=== PATIENT | female | born 1990 | race Caucasian/White ===

== ENCOUNTER 2017-08-15 12:46 | Emergency (ER) | payer OTHER ==
[~2017-08-15] VITALS: Ht 162.6 cm; Wt 86.8 kg
[2017-08-15 12:52] VITALS: TEMP 36.6; Ht 162.6 cm; Wt 86.8 kg
[2017-08-15] MEDS ORDERED: MULT-506 PO (12:52)
[2017-08-15] MEDS ORDERED: PRED10TA PO (12:52)
[2017-08-15] MEDS ORDERED: DIPH1TAB PO (12:52)
[2017-08-15] MEDS ORDERED: ASCA500 PO (12:52)
[2017-08-15] MEDS ORDERED: CLR10 PO (12:52)
[2017-08-15 13:03] VITALS: O2SAT 100
[2017-08-15] MEDS ORDERED: ONDANSETRON INJ 2 MG/ML 2 ML VIAL IV STA (13:31)
[2017-08-15] MEDS ORDERED: SODIUM CHLORIDE 0.9% 1000ML 2,000 ML IV STA (13:31)
[2017-08-15 13:56] LABS: BASO % 0.1 %; BASO ABS # 0.01 K/uL (0-0.2); COMPLETE YES; EOS % 0.7 %; HEMATOCRIT 34.9 % (37-47); IG% 0.2 %; LYMPH % 26.1 %; LYMPH ABS # 2.33 K/uL (1.2-3.4); MEAN CELL VOLUME 79.9 fL (80-100); MEAN CORPUSCULAR HEMOGLOBIN 25.6 pg (25-34); MEAN CORPUSCULAR HGB CONC 32.1 g/dl (32-36); MEAN PLATELET VOLUME 9.1 fL (7.4-10.4); MONO % 8.3 %; NEUT % 64.6 %; PLATELET COUNT 474 K/uL (130-400); RED BLOOD COUNT 4.37 M/uL (4.2-5.4); WHITE BLOOD COUNT 8.92 K/uL (4.8-10.8)
[2017-08-15 14:15] LABS: BLOOD UREA NITROGEN 7 mg/dl (7-18); CALCIUM 8.8 mg/dl (8.5-10.1); CARBON DIOXIDE 32 mmol/L (21-32); CHLORIDE 105 mmol/L (98-107); CREATININE 0.67 mg/dl (0.60-1.20); GLUCOSE 82 mg/dl (70-99); POTASSIUM 2.9 mmol/L (3.5-5.1); SODIUM 139 mmol/L (136-145)
--- NOTE | 2017-08-15 14:23 | DIAGNOSTIC IMAGING REPORT ---
CHEST ONE VIEW PORTABLE CLINICAL HISTORY: 27 years-old Female presenting with cp . TECHNIQUE: Portable upright AP view of the chest was obtained. COMPARISON: None. FINDINGS: Cardiomediastinal silhouette normal. Lungs and pleural spaces clear. Osseous structures normal. Upper abdomen normal. IMPRESSION: 1. No acute cardiopulmonary disease. Electronically signed by: Martínez Rossi M.D. 08/15/2017 2:22 PM Dictated Date/Time: 08/15/2017 2:21 PM
[2017-08-15] MEDS ORDERED: POTASSIUM CHLORIDE 10 MEQ / 100ML WTR IV SCH (14:40)
[2017-08-15] MEDS ORDERED: POTASSIUM CHLR 10 MEQ / WTR 40 MEQ in PREMIXED WATER 100 ML IV STA (14:40)
--- NOTE | 2017-08-15 14:55 | DIAGNOSTIC IMAGING REPORT ---
HEAD WITHOUT CONTRAST (CT) CLINICAL HISTORY: 27 years-old Female presenting with HUNG, allergic reaction of unknown source. TECHNIQUE: Multidetector CT imaging of the head was performed without the use of intravenous contrast. IV contrast: None. A dose lowering technique was used consistent with the principles of ALARA (as low as reasonably achievable). COMPARISON: None. CT DOSE (mGy.cm): The estimated cumulative dose is 537.48. FINDINGS: National Park Tour Guide topogram: Unremarkable. Ventricles and sulci normal in size. Brain parenchyma normal in appearance with preserved be-white differentiation. No mass effect or midline shift. No hemorrhage or acute territorial infarct. No extra-axial fluid collection. Paranasal sinuses and mastoid air cells clear. Calvarium intact. IMPRESSION: 1. No acute intracranial pathology. Electronically signed by: Martínez Rossi M.D. 08/15/2017 2:53 PM Dictated Date/Time: 08/15/2017 2:52 PM
[2017-08-15] MEDS ORDERED: POTASSIUM CHLORIDE 10 MEQ TABCR PO STA (15:13)
[2017-08-15 15:29] VITALS: BP 123/84; PULSE 68; O2SAT 99
--- NOTE | 2017-08-15 19:25 | EMERGENCY ROOM VISIT NOTE ---
History Report prepared by Scribe: Shania Gonzalez Under the Supervision of: Dr. Alonzo Ordaz D.O. 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 Her symptoms began to return yesterday, so she went back to [facility] and was told to take Benadryl to help her sleep. She took Benadryl around 2200 and reports when she woke up this morning, she felt "wrong". She currently complains of a headache and a feeling of pressure in her chest. She denies any recent change in vision, fevers, cough , rhinorrhea, sore throat, shortness of breath, nausea, vomiting, diarrhea, pain with urination, melena or increased weakness in her arms or legs. She states her past medical history includes asthma and she has no known medication allergies. Patient denies diabetes, hypertension, hyperlipidemia, CAD, history of sudden at a young age, and smoking. No fevers of 100.4. No stiff neck. 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 A total of 10 systems reviewed and were otherwise negative. Past Medical & Surgical Medical Problems: (1) Asthma Social History Smoking Status: Never Smoker Alcohol Use: occasionally Drug Use: none Marital Status: single Housing Status: lives with roommate Occupation Status: [employer] student Current/Historical Medications Scheduled Ascorbic Acid (Vitamin C), 500 MG PO DAILY Diphenhydramine Hcl (Benadryl Allergy), 25 MG PO DAILY Loratadine (Claritin), 10 MG PO DAILY Multivitamin (Multivitamin), 1 TAB PO DAILY Prednisone (Prednisone), 0 PO UD Allergies Coded Allergies: No Known Allergies (Unverified , 08/15/17) Physical Exam Vital Signs Date Time Temp Pulse Resp B/P (MAP) Pulse Ox O2 Delivery O2 Flow Rate FiO2 08/15/17 15:29 68 16 123/84 99 Room Air 08/15/17 15:10 58 16 130/86 100 Room Air 08/15/17 13:24 60 08/15/17 13:03 100 Room Air 08/15/17 13:03 63 18 98 Room Air 08/15/17 12:52 36.6 62 18 124/87 100 Room Air Physical Exam GENERAL: Patient is alert, sitting up in bed, well appearing, well nourished, no distress, non-toxic EYE EXAM: normal conjunctiva, PERRL and EOM's intact OROPHARYNX: no exudate, no erythema, lips, buccal mucosa, and tongue normal and mucous membranes are moist NECK: supple, no nuchal rigidity, no adenopathy, non-tender LUNGS: Clear to auscultation. Normal chest wall mechanics HEART: no murmurs, S1 normal and S2 normal CHEST: Acute reproducible anterior chest wall pain ABDOMEN: abdomen soft, non-tender, normo-active bowel sounds, no masses, no rebound or guarding. BACK: Back is symmetrical on inspection and there is no deformity, no midline tenderness, no CVA tenderness. SKIN: no rashes and no bruising UPPER EXTREMITIES: upper extremities are grossly normal. LOWER EXTREMITIES: No pitting edema. NEURO EXAM: Normal sensorium, cranial nerves II-XII intact, normal speech, no weakness of arms, no weakness of legs. Medical Decision & Procedures ER Provider Diagnostic Interpretation: Radiology results as stated below per my review and the radiologist's interpretation: CHEST ONE VIEW PORTABLE CLINICAL HISTORY: 27 years-old Female presenting with cp . TECHNIQUE: Portable upright AP view of the chest was obtained. COMPARISON: None. FINDINGS: Cardiomediastinal silhouette normal. Lungs and pleural spaces clear. Osseous structures normal. Upper abdomen normal. IMPRESSION: 1. No acute cardiopulmonary disease. Electronically signed by: Martínez Rossi M.D. 08/15/2017 2:22 PM HEAD WITHOUT CONTRAST (CT) CLINICAL HISTORY: 27 years-old Female presenting with HUNG, allergic reaction of unknown source. TECHNIQUE: Multidetector CT imaging of the head was performed without the use of intravenous contrast. IV contrast: None. A dose lowering technique was used consistent with the principles of ALARA (as low as reasonably achievable). COMPARISON: None. CT DOSE (mGy.cm): The estimated cumulative dose is 537.48. FINDINGS: Payroll And Benefits Coordinator topogram: Unremarkable. Ventricles and sulci normal in size. Brain parenchyma normal in appearance with preserved be-white differentiation. No mass effect or midline shift. No hemorrhage or acute territorial infarct. No extra-axial fluid collection. Paranasal sinuses and mastoid air cells clear. Calvarium intact. IMPRESSION: 1. No acute intracranial pathology. Electronically signed by: Martínez Rossi M.D. 08/15/2017 2:53 PM Laboratory Results 08/15/17 13:45 Red Blood Count 4.37, Mean Corpuscular Volume 79.9, Mean Corpuscular Hemoglobin 25.6, Mean Corpuscular Hemoglobin Concent 32.1, Mean Platelet Volume 9.1, Neutrophils (%) (Auto) 64.6, Lymphocytes (%) (Auto) 26.1, Monocytes (%) (Auto) 8.3, Eosinophils (%) (Auto) 0.7, Basophils (%) (Auto) 0.1, Neutrophils # (Auto) 5.76, Lymphocytes # (Auto) 2.33, Monocytes # (Auto) 0.74, Eosinophils # (Auto) 0.06, Basophils # (Auto) 0.01 08/15/17 13:45 Test 08/15/17 13:45 White Blood Count 8.92 K/uL (4.8-10.8) Red Blood Count 4.37 M/uL (4.2-5.4) Hemoglobin 11.2 g/dL (12.0-16.0) Hematocrit 34.9 % (37-47) Mean Corpuscular Volume 79.9 fL (80-100) Mean Corpuscular Hemoglobin 25.6 pg (25-34) Mean Corpuscular Hemoglobin Concent 32.1 g/dl (32-36) Platelet Count 474 K/uL (130-400) Mean Platelet Volume 9.1 fL (7.4-10.4) Neutrophils (%) (Auto) 64.6 % Lymphocytes (%) (Auto) 26.1 % Monocytes (%) (Auto) 8.3 % Eosinophils (%) (Auto) 0.7 % Basophils (%) (Auto) 0.1 % Neutrophils # (Auto) 5.76 K/uL (1.4-6.5) Lymphocytes # (Auto) 2.33 K/uL (1.2-3.4) Monocytes # (Auto) 0.74 K/uL (0.11-0.59) Eosinophils # (Auto) 0.06 K/uL (0-0.5) Basophils # (Auto) 0.01 K/uL (0-0.2) RDW Standard Deviation 49.2 fL (36.4-46.3) RDW Coefficient of Variation 16.7 % (11.5-14.5) Immature Granulocyte % (Auto) 0.2 % Immature Granulocyte # (Auto) 0.02 K/uL (0.00-0.02) Anion Gap 2.0 mmol/L (3-11) Est Creatinine Clear Calc Drug Dose 135.7 ml/min Estimated GFR () 140.6 Estimated GFR (Non- 121.3 BUN/Creatinine Ratio 10.0 (10-20) Calcium Level 8.8 mg/dl (8.5-10.1) Troponin I < 0.015 ng/ml (0-0.045) Laboratory results per my review. Medications Administered Medications (Trade) Dose Ordered Sig/Bhakti Route Start Time Stop Time Status Last Admin Dose Admin Sodium Chloride 2,000 ml @ 999 mls/hr Q2H1M STAT IV 08/15/17 13:31 08/15/17 15:31 DC 08/15/17 13:31 999 MLS/HR Ondansetron HCl (Zofran Inj) 4 mg NOW STAT IV 08/15/17 13:31 08/15/17 13:32 DC 08/15/17 14:26 4 MG Potassium Chloride (Kcl 10 Meq / Wtr) 10 meq Q1H IV 08/15/17 14:40 08/15/17 15:14 DC 08/15/17 15:11 10 MEQ Potassium Chloride (Klor-Con M10) 80 meq NOW STAT PO 08/15/17 15:13 08/15/17 15:15 DC 08/15/17 15:27 80 MEQ ED Course ED COURSE: Vital signs were reviewed and showed normal vital signs. The patients medical record was reviewed The above diagnostic studies were performed and reviewed. ED treatments and interventions as stated above. 1324: The patient was evaluated in room B3. A complete history and physical examination was performed. 1331: Zofran 4 mg IV, NSS 2000 ml @ 999 mls/hr IV. 1440: Potassium Chloride 10 meq IV. 1448: I reevaluated the patient. Her paresthesias are gone and her headache feels significantly better. 1513: Potassium Chloride 80 meq PO. 1515: Upon reevaluation, the patient is feeling much better and resting comfortably. I discussed my findings with the patient and she understands and agrees with the treatment plan. Based on the patients age, coexisting illnesses, exam and lab findings the decision to treat as an outpatient was made. The patient remained stable while under my care. The patient appeared well at the time of discharge. Medical Decision Etiologies such as allergic reaction, anaphylaxis, urticaria, Santana-Moris syndrome, toxic epidermal necrolysis, erythema multiforme, cellulitis, as well as others were entertained. Patient is a 27-year-old female who presents to ER for not feeling well. She notes that she has had a pressure in her head along with tingling/paresthesias throughout her entire body. He also admits to chest pain which has been present since 8:52 AM this morning. On exam she is reproducible chest pain. She is completely neurologically intact. Recently started steroids were allergic reaction. CT head was negative. No leukocytosis. Labs show a mild hypokalemia. Troponin was negative. EKG was unremarkable. Headache came on gradually and progressive worsened. Nothing to suggest SAH. No signs of meningitis or encephalitis on exam. No nuchal rigidity. Patient was given fluids and oral potassium. She complete resolution of her symptoms with the exception of a mild headache following the Toradol. Patient was discharged follow-up with PCP and instructed to stop taking steroids. Discussed with Pt concerning signs and symptoms to watch out for. Pt was instructed to follow up with their PCP and discussed with the patient their option to return to the ED at anytime for persistent or worsening symptoms. The appropriate anticipatory guidance and out-patient management, including indications for return to the emergency department, were explained at length to the patient and understood. Medication Reconcilliation Current Medication List: was personally reviewed by me Blood Pressure Screening Patient's blood pressure: Normal blood pressure Blood pressure disposition: Did not require urgent referral Impression Primary Impression: Weakness Additional Impressions: Hypokalemia Medication reaction Scribe Attestation The scribe's documentation has been prepared under my direction and personally reviewed by me in its entirety. I confirm that the note above accurately reflects all work, treatment, procedures, and medical decision making performed by me. Departure Information Dispostion Home / Self-Care Referrals No Doctor, Assigned (PCP) Patient Instructions ED Weakness TYRELL, My [facility] Additional Instructions Please follow up with your primary care doctor with in the next 24 hours. Any worsening of your symptoms, please return to the ED immediately. This includes any fevers greater than 100.4, worsening pain, chest pain, shortness breath, persistent nausea, vomiting, unable to eat or drink, or any other concerning signs or symptoms from your standpoint. Please take potassium one hour after getting home. Please stop your steroids as previously directed. Problem Qualifiers Additional Impressions: Medication reaction Encounter type: initial encounter Qualified Codes: T88.7XXA - Unspecified adverse effect of drug or medicament, initial encounter
== END 2017-08-15 15:36 | disposition home or self-care (01) ==
LOC: EDBD 12:46 → C.EDB 12:48
DX: T88.7XXA Unspecified adverse effect of drug or medicament, initial encounter (principal); X58.XXXA Exposure to other specified factors, initial encounter; R53.1 Weakness; E87.6 Hypokalemia; J45.909 Unspecified asthma, uncomplicated

== ENCOUNTER 2017-08-29 11:54 | Emergency (ER) | payer OTHER ==
[~2017-08-29] VITALS: Ht 162.6 cm; Wt 76.5 kg
[~2017-08-29 11:54] MED LIST: ASCA500 PO; CLR10 PO; DIPH1TAB PO; MULT-506 PO; PRED10TA PO
[2017-08-29 12:00] VITALS: TEMP 36.9; Ht 162.6 cm; Wt 76.5 kg
[2017-08-29] MEDS ORDERED: FEXO1TAB49 PO (12:29)
[2017-08-29] MEDS ORDERED: MONT1TAB5 PO (13:35)
[2017-08-29] MEDS ORDERED: HYDR25CA PO (13:35)
--- NOTE | 2017-08-29 13:37 | EMERGENCY ROOM VISIT NOTE ---
History Report prepared by Joao: Juju Witt Under the Supervision of: Dr. Dionicio Wilkins M.D. First contact with patient: 12:05 Chief Complaint: ALLERGIC REACTION Stated Complaint: HIVES MAY BE GONE NOW-FACE SWELLING Nursing Triage Summary: Pt. reports symptoms of allergic reaction and viral symptoms off and on for the last few weeks. She has been seen by her PCP and here in the ED. Was given an epi pen and told to use if developed facial swelling, which she woke up with this morning, but was unable to do because she was shaking too badly. Pt. states that her lips were very swollen, but they have since gone down. She also reports that she had hives last night. Reports that it feels like she has a lump in her throat. States her PCP does not know if she has been exposed to allergens or if it is her body fighting a virus that is causing the allergic reaction. 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 For the past 3 weeks the patient has been having intermittent hives all over her body. She has been evaluated in the ED numerous times for this. They are unsure what the cause is. She is scheduled to follow up with an loan collector next week. The patient states that she has been doing well for the past week and her symptoms had been occurring less frequently. She woke up around 5am today with itchy hives and did not take anything. She went back to sleep and woke up with swelling to her lips. She was unable to get her epi pen to work. She came to the ED for further evaluation. Pt denies recent bug bites or ticks. Pt denies new clothing, detergents, or lotions. Pt denies recent changes in diet. 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 A total of ten systems were reviewed and were otherwise negative. Past Medical & Surgical Medical Problems: (1) Asthma Family History No pertinent history stated. Social History Smoking Status: Never Smoker Alcohol Use: occasionally Drug Use: none Marital Status: single Housing Status: lives with roommate Occupation Status: [employer] student Current/Historical Medications Scheduled Diphenhydramine Hcl (Benadryl Allergy), 25 MG PO HS Fexofenadine Hcl ([place] Allergy), 1 TAB PO QAM Hydroxyzine Pamoate (Vistaril), 1 CAP PO HS Montelukast Sodium (Montelukast Sodium), 1 TAB PO DAILY Multivitamin (Multivitamin), 1 TAB PO DAILY Allergies Coded Allergies: No Known Allergies (Unverified , 08/29/17) Physical Exam Vital Signs Date Time Temp Pulse Resp B/P (MAP) Pulse Ox O2 Delivery O2 Flow Rate FiO2 08/29/17 13:46 75 16 107/75 100 08/29/17 13:30 75 16 107/75 100 Room Air 08/29/17 12:30 72 16 107/69 100 Room Air 08/29/17 12:13 96 08/29/17 12:05 100 Room Air 08/29/17 12:05 94 24 117/73 100 Room Air 08/29/17 12:00 36.9 94 16 126/85 98 Room Air Physical Exam GENERAL: Awake, alert, well-appearing, NAD HENT: Normocephalic, atraumatic. No stridor, no wheezing, no rash, no dental pain or swelling. Posterior pharynx is clear. EYES: Normal conjunctiva. Sclera non-icteric. NECK: Supple. No nuchal rigidity. FROM. RESPIRATORY: CTAB, no rhonchi, wheezing, crackles CARDIAC: RRR, no MRG ABDOMEN: Soft, NTND, BS+ MSK: No chest wall TTP, no LE edema NEURO: GCS 15, CN 2-12 intact, moves all 4s on command SKIN: No rash or jaundice noted. Medical Decision & Procedures ED Course 1205: The patient was evaluated in room C9. A complete history and physical exam was performed. 1334: I reassessed the patient at this time. She is feeling better and resting comfortably. I discussed the results and treatment plan with the patient. I answered all pertaining questions that she had. She expressed understanding and verbalized agreement. The patient will be discharged home. 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 Differential diagnosis: Etiologies such as allergic reaction, anaphylaxis, urticaria, Santana-Moris syndrome, toxic epidermal necrolysis, erythema multiforme, cellulitis, as well as others were entertained. Patient was seen and evaluated at the bedside. Patient was complaining of some intermittent waxing and waning urticaria as well as some facial swelling. Upon exam patient was non-stridulous without any wheezing. No urticaria noted. Patient denies any recent changes in creams detergents. Patient denies any recent dietary changes. Upon exam patient was very well-appearing vital signs stable, not hypoxic nor tachycardic, not tachypnea. I spoke with the patient and recommended that she take Singulair as well as hydroxyzine at bedtime. Patient does have a follow-up with the loan collector on the 26. Patient was told to keep that appointment. Patient was also told to discuss with her family whether or not they suffer from any autoimmune disorders as this may be the culprit. Patient was also instructed to keep a food diary as well as any other changes when she has her symptoms. Upon reassessment patient was non- stridulous and had no wheezing. Patient was well-appearing. Patient was given strict follow-up, discharge, and return precautions was discharged home. Medication Reconcilliation Current Medication List: was personally reviewed by me Blood Pressure Screening Patient's blood pressure: Normal blood pressure Impression Primary Impression: Urticaria Additional Impression: Facial swelling Scribe Attestation The scribe's documentation has been prepared under my direction and personally reviewed by me in its entirety. I confirm that the note above accurately reflects all work, treatment, procedures, and medical decision making performed by me. Departure Information Dispostion Home / Self-Care Prescriptions Hydroxyzine Pamoate (VISTARIL) 25 Mg Cap 1 CAP PO HS for 30 Days, #30 CAP 1 Refill Prov: Dionicio Wilkins M.D. 08/29/17 Montelukast Sodium (MONTELUKAST SODIUM) 10 Mg Tab 1 TAB PO DAILY for 30 Days, #30 TAB 3 Refills Prov: Dionicio Wilkins M.D. 08/29/17 Referrals Dina Peraza M.D. (PCP) Patient Instructions My [facility], Urtic[place] Additional Instructions Please return to the emergency department if you have worsening or recurrent symptoms not amenable to at-home treatment. Please call for a follow-up appointment with her primary care physician. Please take your medications as prescribed. If you have other concerns and/or complaints please feel free to also call your primary care physician's office or return the ED for further evaluation, management, and treatment. You have been examined and treated today on an emergency basis only. This is not a substitute for, or an effort to provide, complete comprehensive medical care. It is impossible to recognize and treat all injuries or illnesses in a single emergency department visit. It is therefore important that you follow up closely with [facility]. Call as soon as possible for an appointment. Thank you for your time and consideration. I look forward to speaking with you again soon. Please don't hesitate to call us if you have any questions. Problem Qualifiers
[2017-08-29 13:46] VITALS: BP 107/75; PULSE 75; O2SAT 100
== END 2017-08-29 13:45 | disposition home or self-care (01) ==
LOC: C.EDB 11:56 → C.EDC 13:45
DX: L50.9 Urticaria, unspecified (principal); R60.0 Localized edema; J45.909 Unspecified asthma, uncomplicated

== ENCOUNTER → 2017-09-07 | Outpatient (CLI) | payer OTHER ==
[~2017-09-07] MED LIST changes: -ASCA500 PO; -CLR10 PO; +FEXO1TAB49 PO; +HYDR25CA PO; +MONT1TAB5 PO; -PRED10TA PO
[2017-09-10 20:20] LABS: BEEF CLASS 0; BEEF IGE <0.10 KU/L; CASHEW CLASS 0; CASHEW IGE <0.10 KU/L; CHOCOLATE CLASS 0; CHOCOLATE IGE <0.10 KU/L; CLAM CLASS 0; CLAM IGE <0.10 KU/L; CORN CLASS 0/1; CORN IGE 0.22 KU/L; CRAB CLASS 0; CRAB IGE <0.10 KU/L; EGG MIX CLASS 0; EGG MIX IGE <0.10 KU/L; HAZELNUT CLASS 0; LOBSTER CLASS 0; LOBSTER IGE <0.10 KU/L; PEANUT IGE <0.10 KU/L; PECAN NUT CLASS 0; PECAN NUT IGE <0.10 KU/L; PISTACHIO CLASS 0; PISTACHIO IGE <0.10 KU/L; PORK CLASS 0; PORK IGE <0.10 KU/L; RAST ALMOND CLASS 0; RAST ALMOND IGE <0.10 KU/L; RAST BRAZIL NUT CLASS 0; RAST BRAZIL NUT IGE <0.10 KU/L; RAST HAZELNUT IGE <0.10 KU/L; SHRIMP CLASS 0/1; SOY CLASS 0/1; SOY IGE 0.14 KU/L; WALNUT CLASS 0; WHEAT CLASS 0/1
== END | disposition home or self-care (01) ==
LOC: C.LAB1850 13:21
PROVIDERS: ATTEND Internal Medicine Pulmonary Disease
DX: J45.909 Unspecified asthma, uncomplicated (principal)

== ENCOUNTER 2017-10-02 12:48 | Emergency (ER) | payer OTHER ==
[~2017-10-02] VITALS: Ht 162.6 cm; Wt 76.5 kg
[~2017-10-02 12:48] MED LIST changes: -DIPH1TAB PO; +DIPH1TAB87 PO
[2017-10-02 12:51] VITALS: TEMP 36.7; Ht 162.6 cm; Wt 76.5 kg
[2017-10-02] MEDS ORDERED: LEVO-14 PO (13:13)
[2017-10-02] MEDS ORDERED: DEXAMETHASONE SOD INJ 4 MG/ML VIAL IV STA (13:23)
[2017-10-02] MEDS ORDERED: DiphenhydrAMINE HCL 50 MG/ML VIAL IV STA (13:23)
[2017-10-02] MEDS ORDERED: EpINEphrine INJ 1MG/ML AMP 1 MG/ML AMP IM STA (13:23)
[2017-10-02 16:32] VITALS: BP 114/76; PULSE 67; O2SAT 98
--- NOTE | 2017-10-02 17:32 | EMERGENCY ROOM VISIT NOTE ---
History Report prepared by Joao: Franky Zamarripa Under the Supervision of: Dr. Johnathan Thompson M.D. First contact with patient: 13:05 Chief Complaint: ALLERGIC REACTION Stated Complaint: HIVES, FACE SWELLING/TINGLING, CHEST TIGHTNESS Nursing Triage Summary: Pt reports hives, facial swelling, chest tightness, throat tightness. facial swelling started last night. was instrcuetd to come to ED when that happened. symptoms have been ongoing for a while. uknown exposure. "I couldn't get my epi pen to work". no Benadryl today. History of Present Illness The patient is a 27 year old female who presents to the Emergency Room with complaints of an allergic reaction that began last night. She has been following up with an metal hanger for her potential food allergies and is waiting for the full results. She has been having intermittent hives for the past two months and has tried to cut out any potential food allergens out of her diet. However, her nut allergy test came back negative and was told yesterday that she can eat nut products. Yesterday, she decided to eat Oreo Thins with peanut butter. She then started getting "unbearably itchy" in the evening and had globalized hives. She noticed that her lips were swelling and attempted to use her EpiPen, but could not get it to work, so she presented to the ER. She is also having some itching to her throat. Pt denies LOC, headache, fevers, chills , diaphoresis, visual changes, neck pain, chest pain, breathing difficulties, nausea, vomiting, abdominal pain, back pain, melena, hematochezia, urinary symptoms, numbness, weakness, lymphadenopathy, or other complaints. She has been taking Levocetirizine at night for her allergies. She states that she has adverse reactions with Prednisone and Zantac. Source of History: patient Onset: last night Position: other (Global) Symptom Intensity: moderate Quality: other (Allergic Reaction) Timing: constant Note: She states that she has generalized itching with hives. She also has some lip swelling and throat itching. Review of Systems See HPI for pertinent positives and negatives. A total of ten systems were reviewed and were otherwise negative. Past Medical & Surgical Medical Problems: (1) Asthma Family History Patient reports no known family medical history. Social History Smoking Status: Never Smoker Smokeless Tobacco Use: No Alcohol Use: occasionally Drug Use: none Marital Status: single Housing Status: lives with roommate Occupation Status: [employer] student Current/Historical Medications Scheduled Diphenhydramine Hcl (Benadryl Allergy), 25 MG PO HS Fexofenadine Hcl ([place] Allergy), 1 TAB PO QAM Levocetirizine Dihydrochloride (Levocetirizine Dihydrochl), 5 MG PO QPM Montelukast Sodium (Montelukast Sodium), 1 TAB PO DAILY Allergies Coded Allergies: Prednisone (Verified Allergy, Intermediate, SHORTNESS OF BREATH, 10/02/17) problems with my heart and breathing per pt Ranitidine (Unverified Allergy, Unknown, HEART PALPITATIONS, 10/02/17) Physical Exam Vital Signs Date Time Temp Pulse Resp B/P (MAP) Pulse Ox O2 Delivery O2 Flow Rate FiO2 10/02/17 16:32 67 18 114/76 98 Room Air 10/02/17 14:43 84 20 128/69 100 10/02/17 13:54 89 16 143/77 100 Room Air 10/02/17 13:33 85 10/02/17 12:53 99 Room Air 10/02/17 12:51 36.7 95 16 139/87 99 Room Air Physical Exam GENERAL: Awake, alert, well-appearing, in no distress HENT: Normocephalic, atraumatic. Swelling to the lower lip. Oropharynx unremarkable. EYES: Normal conjunctiva. Sclera non-icteric. NECK: Supple. No nuchal rigidity. FROM. No JVD. RESPIRATORY: Clear to auscultation. CARDIAC: Regular rate, normal rhythm. Extremities warm and well perfused. Pulses equal. ABDOMEN: Soft, non-distended. No tenderness to palpation. No rebound or guarding. No masses. RECTAL: Deferred. MUSCULOSKELETAL: Chest examination reveals no tenderness. The back is symmetrical on inspection without obvious abnormality. There is no CVA tenderness to palpation. No joint edema. LOWER EXTREMITIES: Calves are equal size bilaterally and non-tender. No edema. No discoloration. NEURO: Normal sensorium. No sensory or motor deficits noted. SKIN: Small areas of redness and hives to the face. Medical Decision & Procedures Medications Administered Medications (Trade) Dose Ordered Sig/Bhakti Route Start Time Stop Time Status Last Admin Dose Admin Epinephrine HCl (EpINEphrine INJ 1MG/ML AMP/VIAL) 0.3 mg NOW STAT IM 10/02/17 13:23 10/02/17 13:25 DC 10/02/17 13:45 0.3 MG Diphenhydramine HCl (Benadryl Inj) 50 mg NOW STAT IV 10/02/17 13:23 10/02/17 13:25 DC 10/02/17 13:47 50 MG Dexamethasone Sodium Phosphate (Decadron Inj) 10 mg NOW STAT IV 10/02/17 13:23 10/02/17 13:25 DC 10/02/17 13:52 10 MG ED Course 1305: The patient was evaluated in room B10. A complete history and physical exam was performed. 1323: Ordered Decadron Inj 10 mg IV, Benadryl 50 mg IV, Epinephrine HCl 0.3 mg IM 1444: The patient is beginning to feel better. 1649: I reevaluated the patient. Discussed results and discharge instructions: She verbalized understanding and agreement. The patient is ready for discharge. Medical Decision Triage Nursing notes reviewed and agree them. The patient's history was concerning for possible allergic reaction. Differential diagnosis: Etiologies such as allergic reaction, anaphylaxis, urticaria, Santana-Moris syndrome, toxic epidermal necrolysis, erythema multiforme, cellulitis, as well as others were entertained. Physical examination: As above. ER treatment provided: Continuous cardiac monitoring Benadryl 50 mg IV Decadron 10 mg IV Epi 0.3 mg IM. On reassessment the patient felt better. It appears the patient had an allergic like reaction. The above treatment did well to reverse the symptoms. After prolonged monitoring and frequent reassessments the patient did very well and symptoms resolved. The exact etiology is unknown. She is currently being worked up by allergy. She will avoid the foods that she consumed in the last 2 days. By the evaluation outlined above emergent etiologies such as airway compromise, Santana-Moris syndrome, toxic epidermal necrolysis, erythema multiforme, cellulitis, as well as others were deemed relatively unlikely. The patient was informed about the findings as listed above. All questions were answered and she was pleased with the treatment. Return instructions were outlined and the patient was discharged in stable condition. Outpatient prescription management: no change Referral: The patient was referred back to allergy next week for a recheck of the current condition. The chart was completed utilizing Dragon Speech voice recognition software. Grammatical errors, random word insertions, pronoun errors, and incomplete sentences are an occasional side effect of this system due to software limitations, ambient noise, and hardware issues. Any formal questions or concerns about the content, text, or information contained within the body of this dictation should be directly addressed to the physician for clarification. Medication Reconcilliation Current Medication List: was personally reviewed by me Blood Pressure Screening Patient's blood pressure: Normal blood pressure Blood pressure disposition: Did not require urgent referral Impression Primary Impression: Urticaria Additional Impression: Allergic reaction Scribe Attestation The scribe's documentation has been prepared under my direction and personally reviewed by me in its entirety. I confirm that the note above accurately reflects all work, treatment, procedures, and medical decision making performed by me. Departure Information Dispostion Home / Self-Care Referrals Dina Peraza M.D. (PCP) Johnathan Poon M.D. Forms HOME CARE DOCUMENTATION FORM, IMPORTANT VISIT INFORMATION Patient Instructions [facility] Additional Instructions ALLERGIC REACTION INSTRUCTIONS: DO NOT drive, drink alcohol, operate machinery, or perform dangerous activities today. You were given medications in the ER that can affect your ability to safely function or operate a vehicle. Epi-Pen: Use one injection as instructed for severe allergic reactions associated with shortness of breath, difficulty breathing, or throat or tongue swelling. If you use this injection call 911 or proceed immediately to the nearest Emergency Room. Diphenhydramine(Benadryl) 25mg: use 25 to 50 mg every six hours for swelling, itching, or hives. This medication is sedating and will cause drowsiness. Avoid alcohol, operating machinery or dangerous equipment, working on ladders or roofs, DRIVING, or situations where being under the influence may be dangerous. Continue current medications. Return to the emergency department for worsening of your rash, swelling of your face, lips, tongue, or throat, difficulty breathing, vomiting, or as needed. Follow-up with your metal hanger as scheduled next week for a recheck of your current condition. Problem Qualifiers Additional Impression: Allergic reaction Encounter type: initial encounter Qualified Codes: T78.40XA - Allergy, unspecified, initial encounter
== END 2017-10-02 17:03 | disposition home or self-care (01) ==
LOC: C.EDB 12:50
DX: T78.40XA Allergy, unspecified, initial encounter (principal); L50.0 Allergic urticaria; J45.909 Unspecified asthma, uncomplicated; Z79.899 Other long term (current) drug therapy

== ENCOUNTER → 2017-10-07 | Outpatient (CLI) | payer OTHER ==
[~2017-10-07] MED LIST changes: -HYDR25CA PO; +LEVO-14 PO; -MULT-506 PO
[2017-10-07 14:38] LABS: COMPLETE YES; EOS % 4.1 %; HEMATOCRIT 34.8 % (37-47); IG% 0.3 %; LYMPH % 36.6 %; LYMPH ABS # 1.33 K/uL (1.2-3.4); MEAN CELL VOLUME 80.9 fL (80-100); MEAN CORPUSCULAR HEMOGLOBIN 25.3 pg (25-34); MEAN CORPUSCULAR HGB CONC 31.3 g/dl (32-36); MEAN PLATELET VOLUME 9.2 fL (7.4-10.4); MONO % 6.3 %; NEUT % 52.7 %; PLATELET COUNT 441 K/uL (130-400); WHITE BLOOD COUNT 3.63 K/uL (4.8-10.8)
== END | disposition home or self-care (01) ==
LOC: C.LAB1850 12:03
PROVIDERS: ATTEND Physician Assistant Medical
DX: L50.1 Idiopathic urticaria (principal)

== ENCOUNTER → 2017-10-22 | Outpatient (CLI) | payer OTHER ==
[2017-10-22 12:42] LABS: FERRITIN 4.6 ng/ml (8.0-388.0)
[2017-10-24 19:27] LABS: HCT 32.7 % (35.0-45.0); HEMOGLOBIN A2 2.6 % (1.8-3.5); HGB 10.3 g/dL (11.7-15.5); MCH 25.5 pg (27.0-33.0); MCV 80.9 FL (80.0-100.0); RBC 4.04 Mill/uL (3.80-5.10); RDW 19.8 % (11.0-15.0)
== END | disposition home or self-care (01) ==
LOC: C.LAB1850 10:40
PROVIDERS: ATTEND Physician Assistant Medical
DX: R79.89 Other specified abnormal findings of blood chemistry (principal)

== ENCOUNTER 2023-10-06 18:02 | Inpatient (IN) ==
--- NOTE | 2023-10-06 18:08 | ED Triage Note ---
Date of Service October 06, 2023 History of Present Illness This patient was briefly evaluated while in triage. An abbreviated physical exam was performed. This patient is a 33-year-old Female who presents to the ED for evaluation of fever, 104f, dizziness, shaking, nausea. Started thursday PM. Began with ear pain. Fever started today. [place] warm yesterday. Physical Exam GENERAL: 33 year old female. In no acute distress. SKIN: No lesions or rashes. HEART: Regular rate and rhythm. LUNGS: Clear to auscultation. ABDOMEN: Bowel sounds normoactive. No guarding or rigidity. No tenderness of palpation. NEURO: Alert and oriented. No deficits. MUSCULOSKELETAL: No deformities to inspection of the extremities. PSYCH: Patient is pleasant and answers all questions appropriately. Initial orders for labs and / or imaging were placed.
[2023-10-06 18:53] LABS: Eosinophils # (auto) 0.03 K/uL (0.00-0.50); Eosinophils % (auto) 0.4 %; Hematocrit (blood only) 39.6 % (37.0-47.0); Hemoglobin 12.8 g/dl (12.0-16.0); Immature Granulocytes # (auto) 0.03 K/uL (0.01-0.20); Immature Granulocytes % (auto) 0.4 %; Lymphocytes # (auto) 0.45 K/uL (1.20-3.40); Lymphocytes % (auto) 5.3 %; Mean Corpuscular Hemoglobin 26.7 pg (25.0-34.0); Mean Corpuscular Hgb Conc 32.3 g/dL (32.0-36.0); Mean Corpuscular Volume 82.7 fL (80.0-100.0); Monocytes # (auto) 0.43 K/uL (0.11-0.59); Monocytes % (auto) 5.1 %; Neutrophils # (auto) 7.54 K/uL (1.40-6.50); Neutrophils % (auto) 88.8 %; Platelet Count 378 K/uL (130-400); RDW Coefficient of Variation 15.2 % (11.5-14.5); RDW Standard Deviation 45.7 fL (36.4-46.3); Red Blood Count 4.79 M/uL (4.20-5.40); White Blood Count 8.48 K/ul (4.8-10.8)
[2023-10-06 19:00] LABS: Pregnancy Test, Serum Negative (Negative)
[2023-10-06 19:04] LABS: Albumin Globulin Ratio 1.2 (0.9-2); Albumin Level 4.1 gm/dl (3.4-5.0); BUN Creatinine Ratio 10.6 (10-20); Bilirubin,Total 0.3 mg/dl (0.2-1.0); Calcium 9.2 mg/dl (8.6-10.3); Creatinine Clr Calc Pharmacy 151.1 ml/min; Est GFR (African American) 135.5 ml/min; Est GFR (Non-African American) 116.9 ml/min; Globulin 3.4 gm/dl (2.5-4.0); Potassium 3.7 mmol/L (3.5-5.1); Total Protein 7.5 gm/dl (6.0-8.3)
[2023-10-06 19:20] LABS: Procalcitonin < 0.05 ng/ml (0-0.5)
[2023-10-06] MEDS: SODIUM CHLORIDE 0.9% 1,000 ML IV SCH ×2 (20:26→22:02)
[2023-10-06] MEDS ORDERED: ACETAMINOPHEN 500 MG TAB PO STA (20:40)
[2023-10-06] MEDS ORDERED: ONDANSETRON INJ 2 MG/ML 2 ML VIAL IV STA ×2 (20:40→21:58)
--- NOTE | 2023-10-06 20:44 | Emergency Department Note ---
Impression & Plan Otitis externa ADMIT ED Provider Note HPI: History obtained from patient. The patient is a 33-year-old female with history of migraine headaches, presents emergency department with chief complaint of right ear pain and fever. Patient was seen here in the emergency department yesterday and diagnosed with otitis media of the right ear. She was placed on antibiotics and ultimately discharged home. Patient states that her symptoms seem to have worsened into today, she admits to some nausea and lightheadedness, states she still has pain in her right ear. Patient states the pain is actually more on the outside of her ear and in the ear canal, on arrival here to the ED the patient is tachycardic at 132 and febrile at 39.4, she is saturating well on room air. ROS: - Per HPI Differential Diagnosis: Otitis media, otitis externa, mastoiditis, meningitis, acute sinusitis, pneumonia, urinary tract infection, COVID-19 infection, influenza a, tickborne illness, viral upper respiratory infection, amongst other potential pathologies. *Outpatient medications and allergy history reviewed. *Pertinent external medical records reviewed -Otolaryngology outpatient note from 04/02/22 PE: General: Alert HEENT: Normocephalic, trachea midline, dullness of the right TM without any obvious perforation or bleeding, there is no purulent drainage or significant swelling of the external auditory canal, there is significant tenderness to palpation of the right ear and pain with examination of the right ear with otoscope, left TM is clear, there is no significant tenderness over the right mastoid Eyes: Extraocular eye movement is intact, no scleral erythema Pulmonary: Clear to auscultation bilaterally, no wheezing Cardio: Regular rate and rhythm GI: Abdomen is soft to palpation : No suprapubic tenderness MSK: No evidence of trauma or malformation of the extremities, no edema Skin: No evidence of rash Neuro: Alert, no focal deficits Psychiatric: Cooperative INDEPENDENT INTERPRETATIONS: monitor technician: (As interpreted by myself): - An order was placed for continuous cardiac monitoring - Patient was noted to be in sinus tachycardia with a rate of 1 3 Chest x-ray: (As interpreted by myself): No evidence of acute process Interventions provided in ED: -IV fluid bolus, IV vancomycin, IV ceftriaxone, IV Levaquin, IV morphine, IV Zofran, Tylenol Medical Decision Making: IV was established and lab work obtained, patient was placed on monitor technician. Lab work shows no leukocytosis, hemoglobin is stable, platelet count is normal, there is a slight neutrophilic predominance on the patient's differential, CMP shows mild hyponatremia at 135, no evidence of acute kidney injury, lactic acid is normal, procalcitonin is low, testing is negative. Urinalysis does not show any evidence of any obvious infection, chest x-ray per my interpretation does not show any evidence of pneumonia. Lyme disease testing and Anaplasma testing are both negative. Viral panel testing is pascual negative. On examination the patient is significant tenderness of the right ear, she has dullness of the right TM. Likely related to recently diagnosed otitis media. Patient did have some tenderness over the right mastoid to palpation although it was not severe, given that the patient's tachycardia continued despite IV fluids and Tylenol in addition to continued fever I did order CT imaging of the head that does not show any evidence of acute mastoiditis. CT imaging of the facial bones does not show any evidence of any dental abscess or periapical abscess. Patient does not have any pain in the area of the TMJ. Patient does not appear meningitic on my exam, CT imaging is suggestive of likely right-sided otitis externa. This does clinically correlate with the patient's tenderness. She was started on broad-spectrum IV antibiotic with vancomycin, ceftriaxone, and Levaquin for Pseudomonas coverage. I discussed the patient's presentation with the on-call hospitalist, Dr. Solorzano, the patient will be placed for admission for IV antibiotics and further management. Patient is in agreement to this plan, tachycardia improved to low 100s with IV fluids, and fever did downtrend to 38.2C prior to admission. Consultants/Discussions held with other healthcare providers: -Hospitalist, Dr. Solorzano Disposition discussion held by myself with: -Patient and significant other at the bedside Diagnosis: 1. Otitis externa, right ear 2. Fever, acute 3. Tachycardia, acute 4. 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/08 - repeat cotest in 08/09 Condyloma Prediabetes Long COVID x 1 year Anxiety Depression Tinnitus, bilateral Acne Hx of migraines Environmental and seasonal allergies Asthma Surgical History Status post wisdom tooth extraction Family History Uncle Heart disease Hypertension Brother Heart disease Mother Hypertension Overdose Family/Other Hypertension Grandmother Stroke Other No family history of adverse response to anesthesia No family history of bleeding disorder Social History Smoking Status: Never smoker Second Hand Exposure: No; Do You Dip or Chew Tobacco: No; Hx Alcohol Use: Yes Alcohol Intake Frequency Comment: SOCIALLY Hx Substance Use: No Preferred Language: Kinyarwanda Communication Ability: Effective Visual Impairment: No Limitations Optical Mechanic Required: No marital status: Single Current Living Situation: Alone current occupational status: employed and student 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 [employer] ; Karla Feels Safe at Home: Yes Allergies Allergies Allergy/AdvReac Type Severity Reaction Status Date / Time corn Allergy Severe Rash Verified 10/06/23 20:53 shrimp Allergy Severe Rash Verified 10/06/23 20:53 soy Allergy Severe Rash Verified 10/06/23 20:53 wheat Allergy Severe Rash Verified 10/06/23 20:53 ranitidine AdvReac Severe HEART Verified 10/06/23 20:53 PALPITATIONS Home Meds Home Medications Medication Instructions Recorded Confirmed fluoxetine 40 mg capsule 80 mg PO HS 08/10/20 10/06/23 ascorbic acid (vitamin C) 500 mg 500 mg PO DAILY 09/10/21 10/06/23 chewable tablet (Vitamin C) cholecalciferol (vitamin D3) 25 25 mcg PO DAILY 09/10/21 10/06/23 mcg (1,000 unit) chewable tablet (Vitamin D3) montelukast 10 mg tablet 10 mg PO QAM 09/10/21 10/06/23 fluticasone propionate 50 2 spray intranasal DAILY PRN 01/07/22 10/06/23 mcg/actuation nasal Congestion spray,suspension levocetirizine 5 mg tablet 10 mg PO HS 01/07/22 10/06/23 lidocaine 5 % topical ointment 1 applic topical .4-5 TIMES A DAY 01/07/22 10/06/23 PRN Pain lorazepam 0.5 mg tablet 0.5 mg PO BID PRN Anxiety 01/07/22 10/06/23 multivitamin 1 tab PO DAILY 01/07/22 10/06/23 naproxen 500 mg tablet (Naprosyn) 500 mg PO DIRECTED PRN 01/07/22 10/06/23 Menstrual Cramps/PAIN trazodone 50 mg tablet 50 mg PO HS PRN Sleep 01/07/22 10/06/23 valacyclovir 500 mg tablet 500 mg PO Q12H PRN Outbreak 01/07/22 10/06/23 (Valtrex) spironolactone 50 mg tablet 50 mg PO DAILY 04/02/22 10/06/23 clindamycin phosphate 1 % lotion 1 applic topical DAILY PRN ACNE 09/22/23 10/06/23 FLARE UPS sumatriptan succinate 100 mg tablet 100 mg PO DIRECTED PRN Migraine 09/22/23 10/06/23 Headache tretinoin 0.05 % topical cream 1 applic topical DAILY PRN ACNE 09/22/23 10/06/23 FLARE UPS Lactobacil.acidophilus-Bifido.animalis 1 cap PO DAILY 10/06/23 10/06/23 5 billion cell sprinkle capsule (Probiotic) acetaminophen 500 mg tablet 1,000 mg PO Q6H PRN PAIN/FEVER 10/06/23 10/06/23 (Tylenol Extra Strength) albuterol sulfate 90 mcg/actuation 2 inh inhalation Q6H PRN Shortness 10/06/23 10/06/23 aerosol inhaler Of Breath Or Wheezing epinephrine 0.3 mg/0.3 mL 0.3 mg IM DIRECTED PRN 10/06/23 10/06/23 injection, auto-injector (EpiPen) anaphylaxis hydroxyzine HCl 25 mg tablet 25 mg PO DIRECTED PRN Itching 10/06/23 10/06/23 Previous Rx's Medication Instructions Recorded ondansetron 4 mg disintegrating 4 mg PO Q6H PRN nausea and 08/19/22 tablet vomiting #10 tabs amoxicillin 875 mg-potassium 1 tab PO BID 7 days #14 tabs 10/05/23 clavulanate 125 mg tablet Results & Data (ED) Vital Signs Vital Signs - 24 hr 10/06/23 18:03 10/06/23 20:27 10/06/23 20:29 Temperature 39.5 C H 39.4 C H Temperature Source Oral Oral Pulse Rate 137 H Pulse Rate [Finger] 132 H Pulse Rate from SpO2 Sensor Respiratory Rate 18 22 Respiratory Effort / Characteristics Non-Labored Spontaneous Respiratory Depth Normal Blood Pressure 145/95 H Blood Pressure Mean 111 Blood Pressure Position Sitting Pulse Oximetry 98 98 Oxygen Delivery Method Room Air Room Air Sepsis Recent Fever Within 48 Hours No Sepsis New/Unexplained Change in Mental Status No Sepsis Action Taken by Nursing Physician Notified 10/06/23 21:21 10/06/23 21:21 10/06/23 21:30 Temperature Temperature Source Pulse Rate 117 H 118 H 122 H Pulse Rate [Finger] Pulse Rate from SpO2 Sensor 118 H 122 H Respiratory Rate 22 20 Respiratory Effort / Characteristics Respiratory Depth Blood Pressure Blood Pressure Mean Blood Pressure Position Pulse Oximetry 96 96 Oxygen Delivery Method Sepsis Recent Fever Within 48 Hours Sepsis New/Unexplained Change in Mental Status Sepsis Action Taken by Nursing 10/06/23 21:56 10/06/23 22:00 10/06/23 22:08 Temperature 39.4 C H Temperature Source Oral Pulse Rate 120 H Pulse Rate [Finger] 127 H Pulse Rate from SpO2 Sensor 120 H Respiratory Rate 22 23 Respiratory Effort / Characteristics Respiratory Depth Blood Pressure 154/101 H Blood Pressure Mean 110 Blood Pressure Position Pulse Oximetry 98 96 Oxygen Delivery Method Room Air Sepsis Recent Fever Within 48 Hours Sepsis New/Unexplained Change in Mental Status Sepsis Action Taken by Nursing 10/06/23 22:08 10/06/23 22:30 10/06/23 23:00 Temperature Temperature Source Pulse Rate 124 H 121 H 158 H Pulse Rate [Finger] Pulse Rate from SpO2 Sensor 124 H 121 H Respiratory Rate 18 22 15 Respiratory Effort / Characteristics Respiratory Depth Blood Pressure Blood Pressure Mean Blood Pressure Position Pulse Oximetry 98 96 Oxygen Delivery Method Sepsis Recent Fever Within 48 Hours Sepsis New/Unexplained Change in Mental Status Sepsis Action Taken by Nursing 10/06/23 23:02 10/06/23 23:02 10/06/23 23:28 Temperature Temperature Source Pulse Rate 128 H Pulse Rate [Finger] Pulse Rate from SpO2 Sensor 129 H Respiratory Rate 19 Respiratory Effort / Characteristics Respiratory Depth Blood Pressure 117/77 129/86 Blood Pressure Mean 95 110 Blood Pressure Position Pulse Oximetry 97 Oxygen Delivery Method Room Air Sepsis Recent Fever Within 48 Hours Sepsis New/Unexplained Change in Mental Status Sepsis Action Taken by Nursing 10/06/23 23:28 10/06/23 23:30 10/06/23 23:30 Temperature Temperature Source Pulse Rate 124 H 118 H Pulse Rate [Finger] Pulse Rate from SpO2 Sensor 123 H 119 H Respiratory Rate 20 23 Respiratory Effort / Characteristics Respiratory Depth Blood Pressure 135/85 Blood Pressure Mean 99 Blood Pressure Position Pulse Oximetry 97 95 Oxygen Delivery Method Room Air Room Air Sepsis Recent Fever Within 48 Hours Sepsis New/Unexplained Change in Mental Status Sepsis Action Taken by Nursing 10/06/23 23:31 10/07/23 00:00 10/07/23 00:58 Temperature 38.2 C H Temperature Source Oral Pulse Rate 112 H 104 H Pulse Rate [Finger] Pulse Rate from SpO2 Sensor 113 H 104 H Respiratory Rate 19 18 Respiratory Effort / Characteristics Respiratory Depth Blood Pressure 142/79 H 116/76 Blood Pressure Mean 100 89 Blood Pressure Position Pulse Oximetry 95 93 Oxygen Delivery Method Room Air Room Air Sepsis Recent Fever Within 48 Hours Sepsis New/Unexplained Change in Mental Status Sepsis Action Taken by Nursing 10/07/23 01:00 10/07/23 01:25 Temperature Temperature Source Pulse Rate 103 H 105 H Pulse Rate [Finger] Pulse Rate from SpO2 Sensor 103 H Respiratory Rate 20 Respiratory Effort / Characteristics Respiratory Depth Blood Pressure 112/76 Blood Pressure Mean 88 Blood Pressure Position Pulse Oximetry 94 Oxygen Delivery Method Room Air Sepsis Recent Fever Within 48 Hours Sepsis New/Unexplained Change in Mental Status Sepsis Action Taken by Nursing Laboratory Data 10/06/23 18:28 10/06/23 18:28 Lab Results 10/06/23 10/06/23 10/06/23 Range/Units 18:13 18:28 21:50 WBC 8.48 (4.8-10.8) K/ul RBC 4.79 (4.20-5.40) M/uL Hgb 12.8 (12.0-16.0) g/dl Hct 39.6 (37.0-47.0) % MCV 82.7 (80.0-100.0) fL MCH 26.7 (25.0-34.0) pg MCHC 32.3 (32.0-36.0) g/dL RDW Std Deviation 45.7 (36.4-46.3) fL RDW Coeff of Mariela 15.2 H (11.5-14.5) % Plt Count 378 (130-400) K/uL MPV 9.0 L (9.4-12.4) fL Immature Gran % (Auto) 0.4 % Neut % (Auto) 88.8 % Lymph % (Auto) 5.3 % [place] % (Auto) 5.1 % Eos % (Auto) 0.4 % Baso % (Auto) 0.0 % Neut # (Auto) 7.54 H (1.40-6.50) K/uL Lymph # (Auto) 0.45 L (1.20-3.40) K/uL [place] # (Auto) 0.43 (0.11-0.59) K/uL Eos # (Auto) 0.03 (0.00-0.50) K/uL Baso # (Auto) 0.00 (0.00-0.20) K/uL Immature Gran # (Auto) 0.03 (0.01-0.20) K/uL Sodium 135 L (136-145) mmol/L Potassium 3.7 (3.5-5.1) mmol/L Chloride 104 (98-107) mmol/L Carbon Dioxide 24 (21-32) mmol/L Anion Gap 7 (3-11) BUN 7 (6-23) mg/dl Creatinine 0.66 (0.6-1.2) mg/dl Est Cr Clr Drug Dosing 151.1 ml/min Est GFR ( Amer) 135.5 ml/min Est GFR (Non-Af Amer) 116.9 ml/min BUN/Creatinine Ratio 10.6 (10-20) Glucose 105 H (70-99(Fasting)) mg/dl Lactate 1.8 (0.4-2.0) mmol/L Calcium 9.2 (8.6-10.3) mg/dl Magnesium (1.7-2.4) mg/dl Total Bilirubin 0.3 (0.2-1.0) mg/dl AST 21 (13-39) U/L ALT 19 (7-52) U/L Alkaline Phosphatase 71 (34-104) U/L Total Protein 7.5 (6.0-8.3) gm/dl Albumin 4.1 (3.4-5.0) gm/dl Globulin 3.4 (2.5-4.0) gm/dl Albumin/Globulin Ratio 1.2 (0.9-2) Procalcitonin < 0.05 (0-0.5) ng/ml HCG, Qual Negative (Negative) Urine Color Urine Appearance (Clear) Urine pH (4.5-7.5) Ur Specific [place] (1.000-1.030) Urine Protein (Negative) Urine Glucose (UA) (Negative) Urine Ketones (Negative) Urine Blood (Negative) Urine Nitrite (Negative) Urine Bilirubin (Negative) Urine Urobilinogen (Negative) Ur Leukocyte Esterase (Negative) Urine WBC (Auto) (0-5) /hpf Urine RBC (Auto) (0-4) /hpf U Hyaline Cast (Auto) (0-5) /lpf U Epithel Cells (Auto) (0-5) /lpf Urine Bacteria (Auto) (Negative) Adenovirus (PCR) Not Detected (NotDetected) Anaplasma Smear See Comment Babesia Smear See Comment B. pertussis DNA (PCR) Not Detected (NotDetected) B.parapertussis DNA PCR Not Detected (NotDetected) Lyme Disease IgG Ab Negative (Negative) Lyme Disease IgM Ab Negative (Negative) C. pneumoniae DNA (PCR) Not Detected (NotDetected) Coronavirus OC43 (PCR) Not Detected (NotDetected) Coronavirus HKU1 (PCR) Not Detected (NotDetected) Coronavirus 229E (PCR) Not Detected (NotDetected) SARS-CoV-2 (PCR) Not Detected (NotDetected) Coronavirus NL63 (PCR) Not Detected (NotDetected) Human Metapneumovir PCR Not Detected (NotDetected) Influenza Type A (PCR) Not Detected (NotDetected) Influenza Type B (PCR) Not Detected (NotDetected) M. pneumoniae (PCR) Not Detected (NotDetected) Parainfluenza 1 (PCR) Not Detected (NotDetected) Parainfluenza 2 (PCR) Not Detected (NotDetected) Parainfluenza 3 (PCR) Not Detected (NotDetected) Parainfluenza 4 (PCR) Not Detected (NotDetected) RSV (PCR) Not Detected (NotDetected) Entero/Rhino (PCR) Not Detected (NotDetected) 10/06/23 10/06/23 10/06/23 Range/Units 23:04 23:11 23:12 WBC (4.8-10.8) K/ul RBC (4.20-5.40) M/uL Hgb (12.0-16.0) g/dl Hct (37.0-47.0) % MCV (80.0-100.0) fL MCH (25.0-34.0) pg MCHC (32.0-36.0) g/dL RDW Std Deviation (36.4-46.3) fL RDW Coeff of Mariela (11.5-14.5) % Plt Count (130-400) K/uL MPV (9.4-12.4) fL Immature Gran % (Auto) % Neut % (Auto) % Lymph % (Auto) % [place] % (Auto) % Eos % (Auto) % Baso % (Auto) % Neut # (Auto) (1.40-6.50) K/uL Lymph # (Auto) (1.20-3.40) K/uL [place] # (Auto) (0.11-0.59) K/uL Eos # (Auto) (0.00-0.50) K/uL Baso # (Auto) (0.00-0.20) K/uL Immature Gran # (Auto) (0.01-0.20) K/uL Sodium (136-145) mmol/L Potassium (3.5-5.1) mmol/L Chloride (98-107) mmol/L Carbon Dioxide (21-32) mmol/L Anion Gap (3-11) BUN (6-23) mg/dl Creatinine (0.6-1.2) mg/dl Est Cr Clr Drug Dosing ml/min Est GFR ( Amer) ml/min Est GFR (Non-Af Amer) ml/min BUN/Creatinine Ratio (10-20) Glucose (70-99(Fasting)) mg/dl Lactate 0.7 (0.4-2.0) mmol/L Calcium (8.6-10.3) mg/dl Magnesium 1.6 L (1.7-2.4) mg/dl Total Bilirubin (0.2-1.0) mg/dl AST (13-39) U/L ALT (7-52) U/L Alkaline Phosphatase (34-104) U/L Total Protein (6.0-8.3) gm/dl Albumin (3.4-5.0) gm/dl Globulin (2.5-4.0) gm/dl Albumin/Globulin Ratio (0.9-2) Procalcitonin (0-0.5) ng/ml HCG, Qual (Negative) Urine Color Yellow Urine Appearance Clear (Clear) Urine pH 5.0 (4.5-7.5) Ur Specific [place] 1.006 (1.000-1.030) Urine Protein Negative (Negative) Urine Glucose (UA) Negative (Negative) Urine Ketones Trace H (Negative) Urine Blood 1+ H (Negative) Urine Nitrite Negative (Negative) Urine Bilirubin Negative (Negative) Urine Urobilinogen Negative (Negative) Ur Leukocyte Esterase Trace H (Negative) Urine WBC (Auto) 1-5 (0-5) /hpf Urine RBC (Auto) 0-4 (0-4) /hpf U Hyaline Cast (Auto) 1-5 (0-5) /lpf U Epithel Cells (Auto) >30 H (0-5) /lpf Urine Bacteria (Auto) Negative (Negative) Adenovirus (PCR) (NotDetected) Anaplasma Smear Babesia Smear B. pertussis DNA (PCR) (NotDetected) B.parapertussis DNA PCR (NotDetected) Lyme Disease IgG Ab (Negative) Lyme Disease IgM Ab (Negative) C. pneumoniae DNA (PCR) (NotDetected) Coronavirus OC43 (PCR) (NotDetected) Coronavirus HKU1 (PCR) (NotDetected) Coronavirus 229E (PCR) (NotDetected) SARS-CoV-2 (PCR) (NotDetected) Coronavirus NL63 (PCR) (NotDetected) Human Metapneumovir PCR (NotDetected) Influenza Type A (PCR) (NotDetected) Influenza Type B (PCR) (NotDetected) M. pneumoniae (PCR) (NotDetected) Parainfluenza 1 (PCR) (NotDetected) Parainfluenza 2 (PCR) (NotDetected) Parainfluenza 3 (PCR) (NotDetected) Parainfluenza 4 (PCR) (NotDetected) RSV (PCR) (NotDetected) Entero/Rhino (PCR) (NotDetected) Administered Medications Potassium Chloride/Sodium Chloride (Normal Saline W/20 Meq Kcl) 20 meq in 1,000 mls @ 100 mls/hr IV .Q10H ONE; Protocol Stop: 10/07/23 10:01 Last Admin: 10/07/23 01:00 Dose: 100 mls/hr Documented By: ANTOINE Discontinued Medications Acetaminophen (Acetaminophen 500 Mg Tab) 1,000 mg PO NOW STA Stop: 10/06/23 20:41 Last Admin: 10/06/23 20:44 Dose: 1,000 mg Documented By: CAMMY Sodium Chloride (Nss) 1,000 mls @ 999 mls/hr IV .Q1H1M NIHARIKA Stop: 10/06/23 22:30 Last Infusion: 10/06/23 23:04 Dose: Infused Documented By: Admin: 10/06/23 22:02 Dose: 999 mls/hr Documented By: Infusion: 10/06/23 21:27 Dose: Infused Documented By: Admin: 10/06/23 20:26 Dose: 999 mls/hr Documented By: CAMMY Sodium Chloride (Nss) 1,000 mls @ 999 mls/hr IV .Q1H1M ONE Stop: 10/06/23 22:16 Last Infusion: 10/06/23 23:04 Dose: Infused Documented By: Admin: 10/06/23 22:02 Dose: 999 mls/hr Documented By: CAMMY Vancomycin HCl 2,250 mg/ (Sodium Chloride) 545 mls @ 200 mls/hr IV NOW ONE Stop: 10/07/23 01:16 Last Infusion: 10/07/23 01:19 Dose: 0 mls/hr Documented By: Admin: 10/06/23 23:59 Dose: 200 mls/hr Documented By: ANTOINE Ceftriaxone Sodium (Rocephin) 2,000 mg in 50 mls @ 100 mls/hr IV NOW STA Stop: 10/06/23 23:02 Last Infusion: 10/06/23 23:54 Dose: Infused Documented By: Admin: 10/06/23 23:07 Dose: 100 mls/hr Documented By: ANTOINE Ioversol (Optiray 320 500ml) 85 ml IV ONCE ONE Stop: 10/06/23 23:20 Last Admin: 10/06/23 23:20 Dose: 85 ml Documented By: NICKI Morphine Sulfate (Morphine Sulfate 4 Mg/Ml 1 Ml Carp\Vial) 4 mg IV NOW STA Stop: 10/06/23 21:59 Last Admin: 10/06/23 22:03 Dose: 4 mg Documented By: CAMMY Ondansetron HCl (Ondansetron Inj 2 Mg/Ml 2 Ml Vial) 4 mg IV NOW STA Stop: 10/06/23 20:41 Last Admin: 10/06/23 20:44 Dose: 4 mg Documented By: CAMMY Ondansetron HCl (Ondansetron Inj 2 Mg/Ml 2 Ml Vial) 4 mg IV NOW STA Stop: 10/06/23 21:59 Last Admin: 10/06/23 22:03 Dose: 4 mg Documented By: CAMMY Imaging Data Radiologist's Impression: Head CT 10/06/23 21:15 Exam(s): CT HEAD Without Contrast EXAM: CT Head Without Intravenous Contrast CLINICAL HISTORY: Reason for exam: R sided ear ache, fever, eval mastoid. TECHNIQUE: Axial computed tomography images of the head/brain without intravenous contrast. CTDI is 37.87 mGy and DLP is 625.8 mGy-cm. Automated exposure control was utilized for the study. A dose lowering technique was utilized adhering to the principles of ALARA. COMPARISON: Head CT 08/10/2020. FINDINGS: Brain: No mass effect or acute infarct. No acute hemorrhage. No abnormal density in the brain parenchyma. Ventricles: No hydrocephalus or midline shift. Bones/joints: No skull fracture. Soft tissues: No scalp hematoma or retroauricular abscess. Sinuses: Clear. Mastoid air cells: No mastoid effusion. No interval change. Moderate soft tissue thickening right external auditory canal, compatible with otitis externa. IMPRESSION: 1. Moderate right otitis externa. No soft tissue abscess. 2. No mastoid effusion. 3. No acute infarct, bleed, or acute intracranial abnormality. Electronically signed by: Rekha Chun M.D. 10/06/23 23:[address] 10/06/23 22:56 Exam(s): CT FACIAL With Contrast IV Amt: 85 ml optiray 320 EXAM: CT Maxillofacial With Intravenous Contrast CLINICAL HISTORY: Reason for exam: R jaw pain, eval for abscess. TECHNIQUE: Axial computed tomography images of the face with intravenous contrast. CTDI is 50.98 mGy and DLP is 343.44 mGy-cm. Automated exposure control was utilized for the study. A dose lowering technique was utilized adhering to the principles of ALARA. CONTRAST: Patient received 85 ml optiray 320 of IV contrast COMPARISON: No relevant prior studies available. FINDINGS: Bones/joints: No acute fracture. Soft tissues: No abnormal soft tissue mass, collection or enhancement. No evidence for a abscess.. Orbits: Unremarkable. Sinuses: Unremarkable. No air-fluid levels. IMPRESSION: No evidence for an abscess. Electronically signed by: Adrian Huffman M.D. 10/07/23 00:46 AM Discharge Plan Visit Data Chief Complaint: Fever Stated Complaint: FEVER, LOSS OF BALANCE, DIZZY ED Provider: Mac De La Fuente Discharge Problem: Otitis externa Forms Stand Alone Forms: [facility] Prescriptions Prescriptions: No Action sumatriptan succinate 100 mg tablet 100 mg PO DIRECTED PRN (Reason: Migraine Headache) tretinoin 0.05 % cream 1 applic topical DAILY PRN (Reason: ACNE FLARE UPS) clindamycin phosphate 1 % lotion 1 applic topical DAILY PRN (Reason: ACNE FLARE UPS) spironolactone 50 mg tablet 50 mg PO DAILY fluoxetine 40 mg capsule 80 mg PO HS trazodone 50 mg Tablet 50 mg PO HS PRN (Reason: Sleep) Rx Instructions: take 30 minutes before bedtime levocetirizine 5 mg tablet 10 mg PO HS lorazepam 0.5 mg Tablet 0.5 mg PO BID PRN (Reason: Anxiety) fluticasone propionate [Flonase] 50 mcg/actuation [place],Suspension 2 spray INTRANASAL DAILY PRN (Reason: Congestion) multivitamin Tablet 1 tab PO DAILY naproxen [Naprosyn] 500 mg Tablet 500 mg PO DIRECTED PRN (Reason: Menstrual Cramps/PAIN) Rx Instructions: take 1 daily one week before start and one week after onset of menstural period. valacyclovir [Valtrex] 500 mg Tablet 500 mg PO Q12H PRN (Reason: Outbreak) Rx Instructions: take for 3 days lidocaine 5 % Ointment 1 applic TOPICAL .4-5 TIMES A DAY PRN (Reason: Pain) Rx Instructions: apply to genitals liberally amoxicillin-pot clavulanate 875-125 mg tablet 1 tab PO BID 7 Days Qty: 14 0RF Rx Instructions: STARTED 10/05/23 FOR 7 DAYS Probiotic 5 billion cell Capsule, Sprinkle 1 cap PO DAILY hydroxyzine HCl 25 mg tablet 25 mg PO DIRECTED PRN (Reason: Itching) epinephrine [EpiPen] 0.3 mg/0.3 mL auto-injector 0.3 mg IM DIRECTED PRN (Reason: anaphylaxis) albuterol sulfate 90 mcg/actuation HFA aerosol inhaler 2 inh inhalation Q6H PRN (Reason: Shortness Of Breath Or Wheezing) acetaminophen [Tylenol Extra Strength] 500 mg Tablet 1,000 mg PO Q6H PRN (Reason: PAIN/FEVER) montelukast 10 mg tablet 10 mg PO QAM ascorbic acid (vitamin C) [Vitamin C] 500 mg Tablet,Chewable 500 mg PO DAILY Rx Instructions: gummy cholecalciferol (vitamin D3) [Vitamin D3] 25 mcg (1,000 unit) Tablet,Chewable 25 mcg PO DAILY Rx Instructions: gummy ondansetron 4 mg tablet,disintegrating 4 mg PO Q6H PRN (Reason: nausea and vomiting) Qty: 10 0RF Referrals Referrals: Jerri Alegria MD [Primary Care Provider] - Discharge Problem: Otitis externa Qualifiers: Otitis externa type: unspecified type Chronicity: acute Laterality: right Q ualified Code(s): H60.501 - Unspecified acute noninfective otitis externa, right ear
[2023-10-06 21:06] LABS: Adenovirus PCR Not Detected (NotDetected); Bordetella parapertussis PCR Not Detected (NotDetected); Bordetella pertussis PCR Not Detected (NotDetected); Chlamydia pneumoniae PCR Not Detected (NotDetected); Coronavirus 229E PCR Not Detected (NotDetected); Coronavirus CoV-2 (COVID19)PCR Not Detected (NotDetected); Coronavirus HKU1 PCR Not Detected (NotDetected); Coronavirus NL63 PCR Not Detected (NotDetected); Coronavirus OC43PCR Not Detected (NotDetected); Human Metapneumovirus PCR Not Detected (NotDetected); Influenza A PCR Not Detected (NotDetected); Influenza B PCR Not Detected (NotDetected); Mycoplasma pneumoniae PCR Not Detected (NotDetected); Parainfluenza Virus 1 PCR Not Detected (NotDetected); Parainfluenza Virus 2 PCR Not Detected (NotDetected); Parainfluenza Virus 3 PCR Not Detected (NotDetected); Parainfluenza Virus 4 PCR Not Detected (NotDetected); Respiratory Syncytial VirusPCR Not Detected (NotDetected); Rhinovirus/Enterovirus PCR Not Detected (NotDetected)
[2023-10-06] MEDS ORDERED: SODIUM CHLORIDE 0.9% 1,000 ML IV ONE (21:16)
[2023-10-06] MEDS ORDERED: MoRPHine SULFATE 4 MG/ML 1 ML CARP\\VIAL IV STA (21:58)
[2023-10-06] MEDS ORDERED: cefTRIAXone SODIUM 2,000 MG/50 ML BAG IV STA (22:33)
[2023-10-06] MEDS ORDERED: VANCOMYCIN HCL 2,250 MG in SODIUM CHLORIDE 0.9% 500 ML IV ONE (22:33)
[2023-10-06] MEDS ORDERED: VANCOMYCIN CONSULT ACTIVE PRN (22:33)
[2023-10-06 22:52] LABS: Lyme Ab IgG w/WB Rflx Negative (Negative); Lyme Ab IgM w/WB Rflx Negative (Negative)
[2023-10-06 23:19] LABS: Appearance Urine Clear (Clear); Bacteria Urine Automated Negative (Negative); Bilirubin Urine Negative (Negative); Blood Urine 1+ (Negative); Color Urine Yellow; Epithelial Cell Urine Auto >30 /lpf (0-5); Glucose Urine UA Negative (Negative); Ketones Urine Trace (Negative); Leukocyte Esterase Urine Trace (Negative); Nitrite Urine Negative (Negative); Protein Urine Negative (Negative); RBC Urine Automated 0-4 /hpf (0-4); Specific Gravity Urine 1.006 (1.000-1.030); Urobilinogen Urine Negative (Negative)
[2023-10-06] MEDS ORDERED: OPTIRAY 320 500ml IV ONE (23:19)
--- NOTE | 2023-10-06 23:22 | CT Scan Report ---
Exam(s): CT HEAD Without Contrast EXAM: CT Head Without Intravenous Contrast CLINICAL HISTORY: Reason for exam: R sided ear ache, fever, eval mastoid. TECHNIQUE: Axial computed tomography images of the head/brain without intravenous contrast. CTDI is 37.87 mGy and DLP is 625.8 mGy-cm. Automated exposure control was utilized for the study. A dose lowering technique was utilized adhering to the principles of ALARA. COMPARISON: Head CT 08/10/2020. FINDINGS: Brain: No mass effect or acute infarct. No acute hemorrhage. No abnormal density in the brain parenchyma. Ventricles: No hydrocephalus or midline shift. Bones/joints: No skull fracture. Soft tissues: No scalp hematoma or retroauricular abscess. Sinuses: Clear. Mastoid air cells: No mastoid effusion. No interval change. Moderate soft tissue thickening right external auditory canal, compatible with otitis externa. IMPRESSION: 1. Moderate right otitis externa. No soft tissue abscess. 2. No mastoid effusion. 3. No acute infarct, bleed, or acute intracranial abnormality. Electronically signed by: Rekha Chun M.D. 10/06/23 23:22 PM
[2023-10-06] MEDS ORDERED: levoFLOXacin/D5W 500 MG/100 ML BAG IV STA (23:27)
[2023-10-07] MEDS ORDERED: KETOROLAC TROMETHAMINE 15 MG/ML VIAL IV PRN (00:02)
[2023-10-07] MEDS ORDERED: NSS + 20MEQ KCL 20 MEQ/1,000 ML BAG IV ONE (00:02)
--- NOTE | 2023-10-07 00:46 | CT Scan Report ---
Exam(s): CT FACIAL With Contrast IV Amt: 85 ml optiray 320 EXAM: CT Maxillofacial With Intravenous Contrast CLINICAL HISTORY: Reason for exam: R jaw pain, eval for abscess. TECHNIQUE: Axial computed tomography images of the face with intravenous contrast. CTDI is 50.98 mGy and DLP is 343.44 mGy-cm. Automated exposure control was utilized for the study. A dose lowering technique was utilized adhering to the principles of ALARA. CONTRAST: Patient received 85 ml optiray 320 of IV contrast COMPARISON: No relevant prior studies available. FINDINGS: Bones/joints: No acute fracture. Soft tissues: No abnormal soft tissue mass, collection or enhancement. No evidence for a abscess.. Orbits: Unremarkable. Sinuses: Unremarkable. No air-fluid levels. IMPRESSION: No evidence for an abscess. Electronically signed by: Adrian Huffman M.D. 10/07/23 00:46 AM
[2023-10-07] MEDS: MAGNESIUM SULFATE / D5W 1 GM/100 ML BAG IV SCH ×2 (01:56→04:03)
--- NOTE | 2023-10-07 02:05 | History & Physical Report ---
Date of Service October 07, 2023 Assessment & Plan (1) Sepsis: Plan: Secondary to acute otitis externa right secondary to ear manipulation Failed outpatient treatment Migraine attack with vertiginous component currently resolved bronchial asthma, stable hx cerebral concussion prediabetes, hemoglobin A1c of 5.22 April 2023 anxiety/mood disorder, at baseline Medical telemetry CS, oral Levaquin course for ENT indication (500 mg daily for next 5 days), topical Ciprodex course ENT consult if without improvement (Patient known to Dr. Huang.) DVT prophylaxis. Lovenox subcu Full code Text document was generated using [employer] voice recognition software. It may contain grammatical or spelling errors. Kindly contact undersigned for clarification of any documentation item in question. History of Present Illness Chief Complaint: Right ear pain Primary Care Provider: Jerri Alegria MD (Patient has not met her.) History obtained from patient, family, and records. Medical history significant for bronchial asthma, migraine, cerebral concussion, prediabetes, anxiety/mood disorder, long COVID 19 syndrome. 3 days ago, patient noted achy right ear pain and sore throat symptoms. Admits to manipulation of the ear during stress. Patient seen at the ER 2 days ago. Patient discharge on Augmentin prescription for otitis media. No improvement despite compliance with medication. Worsening right ear pain going to the jaw. Migraine with vertigo symptoms from uncontrolled ear pain. Fever and chills at home without chest pain, SOB, cough. Patient brought by boyfriend to the ER for evaluation. Vancomycin, ceftriaxone and Levaquin administered at the ER. Medical History as above Surgical History : Dental surgery Family History : DM Personal/Social history : Non-smoker, occasional EtOH intake, currently unemployed Allergies Allergy/AdvReac Type Severity Reaction Status Date / Time corn Allergy Severe Rash Verified 10/06/23 20:53 shrimp Allergy Severe Rash Verified 10/06/23 20:53 soy Allergy Severe Rash Verified 10/06/23 20:53 wheat Allergy Severe Rash Verified 10/06/23 20:53 ranitidine AdvReac Severe HEART Verified 10/06/23 20:53 PALPITATIONS Home Medications Medication Instructions Recorded Confirmed Type fluoxetine 40 mg capsule 80 mg PO HS 08/10/20 10/06/23 History ascorbic acid (vitamin C) 500 mg 500 mg PO DAILY 09/10/21 10/06/23 History chewable tablet (Vitamin C) cholecalciferol (vitamin D3) 25 25 mcg PO DAILY 09/10/21 10/06/23 History mcg (1,000 unit) chewable tablet (Vitamin D3) montelukast 10 mg tablet 10 mg PO QAM 09/10/21 10/06/23 History fluticasone propionate 50 2 spray intranasal DAILY PRN 01/07/22 10/06/23 History mcg/actuation nasal Congestion spray,suspension levocetirizine 5 mg tablet 10 mg PO HS 01/07/22 10/06/23 History lidocaine 5 % topical ointment 1 applic topical .4-5 TIMES A DAY 01/07/22 10/06/23 History PRN Pain lorazepam 0.5 mg tablet 0.5 mg PO BID PRN Anxiety 01/07/22 10/06/23 History multivitamin 1 tab PO DAILY 01/07/22 10/06/23 History naproxen 500 mg tablet (Naprosyn) 500 mg PO DIRECTED PRN 01/07/22 10/06/23 History Menstrual Cramps/PAIN trazodone 50 mg tablet 50 mg PO HS PRN Sleep 01/07/22 10/06/23 History valacyclovir 500 mg tablet 500 mg PO Q12H PRN Outbreak 01/07/22 10/06/23 History (Valtrex) spironolactone 50 mg tablet 50 mg PO DAILY 04/02/22 10/06/23 History ondansetron 4 mg disintegrating 4 mg PO Q6H PRN nausea and 08/19/22 10/06/23 Rx tablet vomiting #10 tabs clindamycin phosphate 1 % lotion 1 applic topical DAILY PRN ACNE 09/22/23 10/06/23 History FLARE UPS sumatriptan succinate 100 mg tablet 100 mg PO DIRECTED PRN Migraine 09/22/23 10/06/23 History Headache tretinoin 0.05 % topical cream 1 applic topical DAILY PRN ACNE 09/22/23 10/06/23 History FLARE UPS amoxicillin 875 mg-potassium 1 tab PO BID 7 days #14 tabs 10/05/23 10/06/23 Rx clavulanate 125 mg tablet Lactobacil.acidophilus-Bifido.animalis 1 cap PO DAILY 10/06/23 10/06/23 History 5 billion cell sprinkle capsule (Probiotic) acetaminophen 500 mg tablet 1,000 mg PO Q6H PRN PAIN/FEVER 10/06/23 10/06/23 History (Tylenol Extra Strength) albuterol sulfate 90 mcg/actuation 2 inh inhalation Q6H PRN Shortness 10/06/23 10/06/23 History aerosol inhaler Of Breath Or Wheezing epinephrine 0.3 mg/0.3 mL 0.3 mg IM DIRECTED PRN 10/06/23 10/06/23 History injection, auto-injector (EpiPen) anaphylaxis hydroxyzine HCl 25 mg tablet 25 mg PO DIRECTED PRN Itching 10/06/23 10/06/23 History Past Med/Surg History Medical History LGSIL on Pap smear of cervix 08/08 - repeat cotest in 08/09 Condyloma Prediabetes Long COVID x 1 year Anxiety Depression Tinnitus, bilateral Acne Hx of migraines Environmental and seasonal allergies Asthma Surgical History Status post wisdom tooth extraction Family History Uncle Heart disease Hypertension Brother Heart disease Mother Hypertension Overdose Family/Other Hypertension Grandmother Stroke Other No family history of adverse response to anesthesia No family history of bleeding disorder Social History Smoking Status: Never smoker Second Hand Exposure: No; Do You Dip or Chew Tobacco: No; Hx Alcohol Use: Yes Alcohol Intake Frequency Comment: SOCIALLY Hx Substance Use: No Preferred Language: [place] Communication Ability: Effective Visual Impairment: No Limitations 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 Required: No Beliefs That Will Affect Care: None marital status: Single Current Living Situation: Alone Current Living Situation Comment: Apartment alone, no pets, no kids current occupational status: employed and student 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 [employer] ; Karla Feels Safe at Home: Yes Safety Concerns: Feels Safe At This Time Assistive Devices: Glasses Review of Systems Review of Systems: As per HPI, all other systems reviewed and negative Physical Exam Physical Exam: GENERAL: Slightly uncomfortable, morbidly obese, no respiratory distress SKIN: Normal color, warm HEENT: Bespectacled, [place] palpebral conjunctivae, no ptosis, dry buccal mucosa; AD: Tragal tenderness, narrow EAC, no discharge, intact TM; : Retained cerumen, intact TM NECK : Supple, short neck, right cervical tenderness CHEST : CTA, no tenderness HEART : Tachycardic, systolic murmur ABDOMEN: Some distention, nontender EXTREMITIES : LE swelling, no LE tenderness, no other conspicuous deformities noted NEUROLOGIC : Coherent, no facial asymmetry, no other gross focality Results & Data Results & Data Vital Signs (Past 12 Hours) Vital Signs Temp Pulse Pulse Resp BP Pulse Ox O2 Del Method 10/07/23 01:25 105 H 10/07/23 01:00 103 H 20 112/76 94 Room Air 10/07/23 00:58 104 H 18 116/76 93 Room Air 10/07/23 00:00 112 H 19 142/79 H 95 Room Air 10/06/23 23:31 38.2 C H 10/06/23 23:30 135/85 10/06/23 23:30 118 H 23 95 Room Air 10/06/23 23:28 124 H 20 97 Room Air 10/06/23 23:28 129/86 10/06/23 23:02 128 H 19 97 Room Air 10/06/23 23:02 117/77 10/06/23 23:00 158 H 15 10/06/23 22:30 121 H 22 96 10/06/23 22:08 124 H 18 98 10/06/23 22:08 154/101 H 10/06/23 22:00 120 H 23 96 10/06/23 21:56 39.4 C H 127 H 22 98 Room Air 10/06/23 21:30 122 H 20 96 10/06/23 21:21 118 H 22 96 10/06/23 21:21 117 H 10/06/23 20:29 39.4 C H 10/06/23 20:27 132 H 22 98 Room Air 10/06/23 18:03 39.5 C H 137 H 18 145/95 H 98 Room Air Laboratory Results Laboratory Results WBC 8.48 K/ul (4.8-10.8) 10/06/23 18:28 RBC 4.79 M/uL (4.20-5.40) 10/06/23 18:28 Hgb 12.8 g/dl (12.0-16.0) 10/06/23 18: Hct 39.6 % (37.0-47.0) 10/06/23 18: MCV 82.7 fL (80.0-100.0) 10/06/23 18: MCH 26.7 pg (25.0-34.0) 10/06/23 18: MCHC 32.3 g/dL (32.0-36.0) 10/06/23 18 RDW Std Deviation 45.7 fL (36.4-46.3) 10/06/23 18 RDW Coeff of Mariela 15.2 % (11.5-14.5) H 10/06/23 Plt Count 378 K/uL (130-400) 10/06/23 18 MPV 9.0 fL (9.4-12.4) L 10/06/23: Immature Gran % (Auto) 0.4 % 10/06/23 18: Neut % (Auto) 88.8 % 10/06/23 18: Lymph % (Auto) 5.3 % 10/06/23 18: Pepin % (Auto) 5.1 % 10/06/23 18: Eos % (Auto) 0.4 % 10/06/23: Baso % (Auto) 0.0 % 10/06/23: Neut # (Auto) 7.54 K/uL (1.40-6.50) H 10/06/23: Lymph # (Auto) 0.45 K/uL (1.20-3.40) L 10/06/23 18: Pepin # (Auto) 0.43 K/uL (0.11-0.59) 10/06/23 18: Eos # (Auto) 0.03 K/uL (0.00-0.50) 10/06/23 18: Baso # (Auto) 0.00 K/uL (0.00-0.20) 10/06/23 18: Immature Gran # (Auto) 0.03 K/uL (0.01-0.20) 10/06/23 18: Sodium 135 mmol/L (136-145) L 10/06/23 18:28 Potassium 3.7 mmol/L (3.5-5.1) 10/06/23 18:28 Chloride 104 mmol/L (98-107) 10/06/23 18:28 Carbon Dioxide 24 mmol/L (21-32) 10/06/23 18:28 Anion Gap 7 (3-11) 10/06/23 18:28 BUN 7 mg/dl (6-23) 10/06/23 18: Creatinine 0.66 mg/dl (0.6-1.2) 10/06/23 18: Est Cr Clr Drug Dosing 151.1 ml/min 10/06/23 18:28 Est GFR ( Amer) 135.5 ml/min 10/06/23 18: Est GFR (Non-Af Amer) 116.9 ml/min 10/06/23 18: BUN/Creatinine Ratio 10.6 (10-20) 10/06/23 18: Glucose 105 mg/dl (70-99(Fasting)) H 10/06/23 18: Lactate 0.7 mmol/L (0.4-2.0) 10/06/23 23:11 Calcium 9.2 mg/dl (8.6-10.3) 10/06/23 18:28 Magnesium 1.6 mg/dl (1.7-2.4) L 10/06/23 23:12 Total Bilirubin 0.3 mg/dl (0.2-1.0) 10/06/23 18:28 AST 21 U/L (13-39) 10/06/23 18:28 ALT 19 U/L (7-52) 10/06/23 18:28 Alkaline Phosphatase 71 U/L (34-104) 10/06/23 18:28 Total Protein 7.5 gm/dl (6.0-8.3) 10/06/23 18:28 Albumin 4.1 gm/dl (3.4-5.0) 10/06/23 18:28 Globulin 3.4 gm/dl (2.5-4.0) 10/06/23 18:28 Albumin/Globulin Ratio 1.2 (0.9-2) 10/06/23 18:28 Procalcitonin < 0.05 ng/ml (0-0.5) 10/06/23 18:28 HCG, Qual Negative (Negative) 10/06/23 18:28 Urine Color Yellow 10/06/23 23:04 Urine Appearance Clear (Clear) 10/06/23 23:04 Urine pH 5.0 (4.5-7.5) 10/06/23 23:04 Ur Specific [place] 1.006 (1.000-1.030) 10/06/23 23:04 Urine Protein Negative (Negative) 10/06/23 23:04 Urine Glucose (UA) Negative (Negative) 10/06/23 23:04 Urine Ketones Trace (Negative) H 10/06/23 23:04 Urine Blood 1+ (Negative) H 10/06/23 23:04 Urine Nitrite Negative (Negative) 10/06/23 23:04 Urine Bilirubin Negative (Negative) 10/06/23 23:04 Urine Urobilinogen Negative (Negative) 10/06/23 23:04 Ur Leukocyte Esterase Trace (Negative) H 10/06/23 23:04 Urine WBC (Auto) 1-5 /hpf (0-5) 10/06/23 23:04 Urine RBC (Auto) 0-4 /hpf (0-4) 10/06/23 23:04 U Hyaline Cast (Auto) 1-5 /lpf (0-5) 10/06/23 23:04 U Epithel Cells (Auto) >30 /lpf (0-5) H 10/06/23 23:04 Urine Bacteria (Auto) Negative (Negative) 10/06/23 23:04 Adenovirus (PCR) Not Detected (NotDetected) 10/06/23 18:13 Anaplasma Smear See Comment 10/06/23 18:28 Babesia Smear See Comment 10/06/23 18:28 B. pertussis DNA (PCR) Not Detected (NotDetected) 10/06/23 18:13 B.parapertussis DNA PCR Not Detected (NotDetected) 10/06/23 18:13 Lyme Disease IgG Ab Negative (Negative) 10/06/23 21:50 Lyme Disease IgM Ab Negative (Negative) 10/06/23 21:50 C. pneumoniae DNA (PCR) Not Detected (NotDetected) 10/06/23 18:13 Coronavirus OC43 (PCR) Not Detected (NotDetected) 10/06/23 18:13 Coronavirus HKU1 (PCR) Not Detected (NotDetected) 10/06/23 18:13 Coronavirus 229E (PCR) Not Detected (NotDetected) 10/06/23 18:13 SARS-CoV-2 (PCR) Not Detected (NotDetected) 10/06/23 18:13 Coronavirus NL63 (PCR) Not Detected (NotDetected) 10/06/23 18:13 Human Metapneumovir PCR Not Detected (NotDetected) 10/06/23 18:13 Influenza Type A (PCR) Not Detected (NotDetected) 10/06/23 18:13 Influenza Type B (PCR) Not Detected (NotDetected) 10/06/23 18:13 M. pneumoniae (PCR) Not Detected (NotDetected) 10/06/23 18:13 Parainfluenza 1 (PCR) Not Detected (NotDetected) 10/06/23 18:13 Parainfluenza 2 (PCR) Not Detected (NotDetected) 10/06/23 18:13 Parainfluenza 3 (PCR) Not Detected (NotDetected) 10/06/23 18:13 Parainfluenza 4 (PCR) Not Detected (NotDetected) 10/06/23 18:13 RSV (PCR) Not Detected (NotDetected) 10/06/23 18:13 Entero/Rhino (PCR) Not Detected (NotDetected) 10/06/23 18:[address] 10/06/23 21:15 Exam(s): CT HEAD Without Contrast EXAM: CT Head Without Intravenous Contrast CLINICAL HISTORY: Reason for exam: R sided ear ache, fever, eval mastoid. TECHNIQUE: Axial computed tomography images of the head/brain without intravenous contrast. CTDI is 37.87 mGy and DLP is 625.8 mGy-cm. Automated exposure control was utilized for the study. A dose lowering technique was utilized adhering to the principles of ALARA. COMPARISON: Head CT 08/10/2020. FINDINGS: Brain: No mass effect or acute infarct. No acute hemorrhage. No abnormal density in the brain parenchyma. Ventricles: No hydrocephalus or midline shift. Bones/joints: No skull fracture. Soft tissues: No scalp hematoma or retroauricular abscess. Sinuses: Clear. Mastoid air cells: No mastoid effusion. No interval change. Moderate soft tissue thickening right external auditory canal, compatible with otitis externa. IMPRESSION: 1. Moderate right otitis externa. No soft tissue abscess. 2. No mastoid effusion. 3. No acute infarct, bleed, or acute intracranial abnormality. Electronically signed by: Rekha Chun M.D. 10/06/23 23:[address] 10/06/23 22:56 Exam(s): CT FACIAL With Contrast IV Amt: 85 ml optiray 320 EXAM: CT Maxillofacial With Intravenous Contrast CLINICAL HISTORY: Reason for exam: R jaw pain, eval for abscess. TECHNIQUE: Axial computed tomography images of the face with intravenous contrast. CTDI is 50.98 mGy and DLP is 343.44 mGy-cm. Automated exposure control was utilized for the study. A dose lowering technique was utilized adhering to the principles of ALARA. CONTRAST: Patient received 85 ml optiray 320 of IV contrast COMPARISON: No relevant prior studies available. FINDINGS: Bones/joints: No acute fracture. Soft tissues: No abnormal soft tissue mass, collection or enhancement. No evidence for a abscess.. Orbits: Unremarkable. Sinuses: Unremarkable. No air-fluid levels. IMPRESSION: No evidence for an abscess. Electronically signed by: Adrian Huffman M.D. 10/07/23 00:46 AM
[2023-10-07] MEDS ORDERED: PROMETHAZINE HCL 12.5 MG in SODIUM CHLORIDE 0.9% 50 ML IV PRN (02:20)
[2023-10-07] MEDS ORDERED: IBUPROFEN 200 MG TAB PO PRN (02:21)
[2023-10-07] MEDS ORDERED: traZODone HCL 50 MG TAB PO PRN (03:46)
[2023-10-07] MEDS ORDERED: FLUTICASONE PROPIONATE NA SPR 16 GM BTL PRN (03:46)
[2023-10-07] MEDS: CIPRO 0.3%/DEXAMETHASONE 0.1% OTIC SUSP 7.5ML OTR SCH ×3 (04:03→20:26)
[2023-10-07 07:26] LABS: Eosinophils # (auto) 0.06 K/uL (0.00-0.50); Eosinophils % (auto) 0.9 %; Hematocrit (blood only) 32.5 % (37.0-47.0); Hemoglobin 10.5 g/dl (12.0-16.0); Immature Granulocytes # (auto) 0.03 K/uL (0.01-0.20); Immature Granulocytes % (auto) 0.4 %; Lymphocytes % (auto) 17.3 %; Mean Corpuscular Hemoglobin 26.9 pg (25.0-34.0); Mean Corpuscular Hgb Conc 32.3 g/dL (32.0-36.0); Mean Corpuscular Volume 83.1 fL (80.0-100.0); Mean Platelet Volume 8.5 fL (9.4-12.4); Monocytes # (auto) 0.68 K/uL (0.11-0.59); Monocytes % (auto) 9.8 %; Neutrophils # (auto) 4.97 K/uL (1.40-6.50); Neutrophils % (auto) 71.6 %; Platelet Count 298 K/uL (130-400); RDW Coefficient of Variation 15.6 % (11.5-14.5); Red Blood Count 3.91 M/uL (4.20-5.40); White Blood Count 6.94 K/ul (4.8-10.8)
--- NOTE | 2023-10-07 07:26 | XRay Report ---
XR chest 1V portable CLINICAL HISTORY: fever TECHNIQUE: Single frontal radiograph of the chest was obtained. Comparison: Comparison is made to chest radiograph 08/19/2022 FINDINGS: Exam is limited by underpenetration. The cardiomediastinal silhouette is normal. The lungs are clear. No evidence of pleural effusion or pneumothorax. IMPRESSION: No acute abnormalities and in particular no radiographic evidence of pneumonia. ACT 112: Negative or not required by law. Electronically signed by: Aj Nagy M.D. 10/07/2023 7:24 AM
[2023-10-07 08:01] LABS: Calcium 7.4 mg/dl (8.6-10.3); Creatinine Clr Calc Pharmacy 166.3 ml/min; Est GFR (African American) 139.8 ml/min; Est GFR (Non-African American) 120.6 ml/min; Magnesium 2.5 mg/dl (1.7-2.4); Potassium 3.7 mmol/L (3.5-5.1)
[2023-10-07] MEDS: ENOXAPARIN INJ 40 MG/0.4 ML SYR SQ SCH (08:41)
[2023-10-07] MEDS: MULTIVITAMIN TAB PO SCH (08:45)
[2023-10-07] MEDS: ADVANCED PROBIOTIC 1250 MG CAPSULE PO SCH (08:45)
[2023-10-07] MEDS: MONTELUKAST SODIUM 10 MG TABLET PO SCH (08:45)
[2023-10-07] MEDS: ACETAMINOPHEN 325 MG TAB PO PRN ×2 (11:34→17:56)
[2023-10-07] MEDS: oxyCODONE HCL IR 5 MG TAB (IMMEDIATE RELEASE) PO PRN ×2 (12:32→18:30)
--- NOTE | 2023-10-07 15:53 | Communication Note ---
Date of Service: October 07, 2023 Since seen and examined at bedside. She reports that she is feeling slightly better compared to admission. She does not have dizziness presently. Infectious workup so far: Chest x-ray personally reviewed; no infiltrates Urinalysis not suggestive of infection Respiratory viral panel negative Blood culture pending Lyme screen negative Continue eardrops and IV levofloxacin. Discussed with ENT over the phone; unusual presentation for otitis externa with high-grade fever. Recommended to evaluate for other sources of infection as well.
--- NOTE | 2023-10-07 16:52 | ENT Consultation ---
Date of Consultation October 07, 2023 Assessment & Plan (1) Otitis externa: Plan 33yF with significant R OE. Canal edema and debris, cultured, debrided, wick placed. Mild associated sialoadenitis. Patient with fevers, tachycardia on presentation, now improving on levaquin. CT face with contrast with evidence of OE without obvious AOM, evidence of mastoiditis, or abscess. Discussed with hospitalist that it would be unusual for OE to result in sepsis, additional sources should be investigated. -Keep wick in place 5 days -Ciprodex - 5 drops to right ear BID x10 days -Continue systemic antibiotics with pseudomonal coverage - levaquin vs. ciprofloxacin -Pain control -OK for discharge at discretion of primary team when clinically improving -F/u Thursday in our office - [phone] -Please call with any changes History of Present Illness Attending Physician: Александр Lyons MD History of Present Illness 33yF seen for evaluation of R otalgia. 3 days of R otalgia, initially diagnosed with R AOM and started on abx. Otalgia worsened and began with nausea, dizziness without vertigo, fevers and returned to ED. Febrile to 39, tachycardic. WBC wnl. CT face showed no middle ear effusion or abscess per my read but evidence of R OE. Has improved on levaquin and began ciprodex drops. Reports ongoing R otalgia and muffled hearing. Fevers resolved and dizziness improving. No prior otologic history or surgery. Previously seen by Dr. Huang for tinnitus. MRI IAC without retrocochlear lesion Allergies Allergy/AdvReac Type Severity Reaction Status Date / Time corn Allergy Severe Rash Verified 10/06/23 20:53 shrimp Allergy Severe Rash Verified 10/06/23 20:53 soy Allergy Severe Rash Verified 10/06/23 20:53 wheat Allergy Severe Rash Verified 10/06/23 20:53 ranitidine AdvReac Severe HEART Verified 10/06/23 20:53 PALPITATIONS Home Medications Medication Instructions Recorded Confirmed Type fluoxetine 40 mg capsule 80 mg PO HS 08/10/20 10/06/23 History ascorbic acid (vitamin C) 500 mg 500 mg PO DAILY 09/10/21 10/06/23 History chewable tablet (Vitamin C) cholecalciferol (vitamin D3) 25 25 mcg PO DAILY 09/10/21 10/06/23 History mcg (1,000 unit) chewable tablet (Vitamin D3) montelukast 10 mg tablet 10 mg PO QAM 09/10/21 10/06/23 History fluticasone propionate 50 2 spray intranasal DAILY PRN 01/07/22 10/06/23 History mcg/actuation nasal Congestion spray,suspension levocetirizine 5 mg tablet 10 mg PO HS 01/07/22 10/06/23 History lidocaine 5 % topical ointment 1 applic topical .4-5 TIMES A DAY 01/07/22 10/06/23 History PRN Pain lorazepam 0.5 mg tablet 0.5 mg PO BID PRN Anxiety 01/07/22 10/06/23 History multivitamin 1 tab PO DAILY 01/07/22 10/06/23 History naproxen 500 mg tablet (Naprosyn) 500 mg PO DIRECTED PRN 01/07/22 10/06/23 History Menstrual Cramps/PAIN trazodone 50 mg tablet 50 mg PO HS PRN Sleep 01/07/22 10/06/23 History valacyclovir 500 mg tablet 500 mg PO Q12H PRN Outbreak 01/07/22 10/06/23 History (Valtrex) spironolactone 50 mg tablet 50 mg PO DAILY 04/02/22 10/06/23 History ondansetron 4 mg disintegrating 4 mg PO Q6H PRN nausea and 08/19/22 10/06/23 Rx tablet vomiting #10 tabs clindamycin phosphate 1 % lotion 1 applic topical DAILY PRN ACNE 09/22/23 10/06/23 History FLARE UPS sumatriptan succinate 100 mg tablet 100 mg PO DIRECTED PRN Migraine 09/22/23 10/06/23 History Headache tretinoin 0.05 % topical cream 1 applic topical DAILY PRN ACNE 09/22/23 10/06/23 History FLARE UPS amoxicillin 875 mg-potassium 1 tab PO BID 7 days #14 tabs 10/05/23 10/06/23 Rx clavulanate 125 mg tablet Lactobacil.acidophilus-Bifido.animalis 1 cap PO DAILY 10/06/23 10/06/23 History 5 billion cell sprinkle capsule (Probiotic) acetaminophen 500 mg tablet 1,000 mg PO Q6H PRN PAIN/FEVER 10/06/23 10/06/23 History (Tylenol Extra Strength) albuterol sulfate 90 mcg/actuation 2 inh inhalation Q6H PRN Shortness 10/06/23 10/06/23 History aerosol inhaler Of Breath Or Wheezing epinephrine 0.3 mg/0.3 mL 0.3 mg IM DIRECTED PRN 10/06/23 10/06/23 History injection, auto-injector (EpiPen) anaphylaxis hydroxyzine HCl 25 mg tablet 25 mg PO DIRECTED PRN Itching 10/06/23 10/06/23 History Patient History Medical History LGSIL on Pap smear of cervix 08/08 - repeat cotest in 08/09 Condyloma Prediabetes Long COVID x 1 year Anxiety Depression Tinnitus, bilateral Acne Hx of migraines Environmental and seasonal allergies Asthma Surgical History Status post wisdom tooth extraction Family History Uncle Heart disease Hypertension Brother Heart disease Mother Hypertension Overdose Family/Other Hypertension Grandmother Stroke Other No family history of adverse response to anesthesia No family history of bleeding disorder Social History Smoking Status: Never smoker Second Hand Exposure: No; Do You Dip or Chew Tobacco: No; Hx Alcohol Use: Yes Alcohol Intake Frequency Comment: SOCIALLY Hx Substance Use: No Preferred Language: Thai Communication Ability: Effective Visual Impairment: No Limitations Chief Crew Scheduler Required: No Beliefs That Will Affect Care: None marital status: Single Current Living Situation: Alone Current Living Situation Comment: Apartment alone, no pets, no kids current occupational status: employed and student 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 Normal sclera and conjunctiva Ears: AD: Pain with manipulation of pinna and tragus. No cellulitis or fluctuance of external ear. No postauricular bulging, erythema, proptosis of ear. EAC with edema and debris in canal, cultured. Debrided at bedside with otoscope and operative head. Sig canal edema, unable to visualize TM. No granulation tissue noted. Wick placed and inflated with ciprodex drops : EAC mild cerumen. TM intact without retraction or effusion. No external ear cellulitis or pain with manipulation Nose: no external deformity, nares patent. No rhinorrhea or epistaxis. Oral cavity: clear, pain with jaw excursion Oropharynx: clear Neck: soft, no masses or lymphadenopathy Mild diffuse fullness/induration of R parotid gland. CN II-XII intact Results & Data Vital Signs (Past 12 Hours) Vital Signs Pulse Pulse Resp BP BP Pulse Ox O2 Del Method 10/07/23 11:13 86 18 105/78 97 Room Air 10/07/23 10:24 82 16 103/64 96 Room Air 10/07/23 08:35 94 H 18 95 Room Air 10/07/23 08:02 83 10/07/23 06:01 103 H 15 123/82 96 Room Air 10/07/23 05:33 95 H 24 112/77 97 Room Air 10/07/23 05:27 88 18 98 Room Air PG Care Time/CCT Total # of Minutes Spent Total Time Spent with Patient: Total time spent is greater than 50% in coordination of care (as documented) at patient's floor/unit and/or counseling patient: Coding Level of Care Code 84973 OFFICE CONSULT LVL M Diagnoses Otitis externa H60.501 Chronicity: acute Laterality: right Otitis externa type: unspecified type (1) Otitis externa Chronicity: acute Laterality: right Otitis externa type: unspecified type Qualified Code(s): H60.501 - Unspecified acute noninfective otitis externa, right ear
[2023-10-07] MEDS ORDERED: INFLUENZA VIRUS QUADRIVALENT VACCINE (IIV4) 0.5 ML SYR IM ONE (18:38)
[2023-10-07] MEDS: LORazepam 0.5 MG TAB PO PRN (19:44)
[2023-10-07] MEDS ORDERED: CETIRIZINE HCL 10 MG TABLET PO SCH (21:00)
[2023-10-07] MEDS ORDERED: FLUoxetine HCL 20 MG CAP PO SCH (21:00)
[2023-10-08] MEDS: oxyCODONE HCL IR 5 MG TAB (IMMEDIATE RELEASE) PO PRN ×2 (03:14→12:49)
[2023-10-08] MEDS: ACETAMINOPHEN 325 MG TAB PO PRN (06:24)
[2023-10-08] MEDS ORDERED: NSS + 20MEQ KCL 20 MEQ/1,000 ML BAG IV ONE (06:27)
[2023-10-08] MEDS: ENOXAPARIN INJ 40 MG/0.4 ML SYR SQ SCH (09:17)
[2023-10-08] MEDS: MULTIVITAMIN TAB PO SCH (09:18)
[2023-10-08] MEDS: ADVANCED PROBIOTIC 1250 MG CAPSULE PO SCH (09:18)
[2023-10-08] MEDS: CIPRO 0.3%/DEXAMETHASONE 0.1% OTIC SUSP 7.5ML OTR SCH (09:18)
[2023-10-08] MEDS: MONTELUKAST SODIUM 10 MG TABLET PO SCH (09:18)
[2023-10-08] MEDS ORDERED: levoFLOXacin 500 MG TAB PO SCH (11:00)
[2023-10-08] MEDS ORDERED: levoFLOXacin 750 MG TAB PO SCH (11:00)
--- NOTE | 2023-10-08 12:26 | Discharge Summary ---
Date of Service October 08, 2023 Admission HPI Per Admitting Provider History obtained from patient, family, and records. Medical history significant for bronchial asthma, migraine, cerebral concussion, prediabetes, anxiety/mood disorder, long COVID 19 syndrome. 3 days ago, patient noted achy right ear pain and sore throat symptoms. Admits to manipulation of the ear during stress. Patient seen at the ER 2 days ago. Patient discharge on Augmentin prescription for otitis media. No improvement despite compliance with medication. Worsening right ear pain going to the jaw. Migraine with vertigo symptoms from uncontrolled ear pain. Fever and chills at home without chest pain, SOB, cough. Patient brought by boyfriend to the ER for evaluation. Vancomycin, ceftriaxone and Levaquin administered at the ER. Medical History as above Surgical History : Dental surgery Family History : DM Personal/Social history : Non-smoker, occasional EtOH intake, currently unemployed Admission Exam Per Admitting Provider GENERAL: Slightly uncomfortable, morbidly obese, no respiratory distress SKIN: Normal color, warm HEENT: Bespectacled, [place] palpebral conjunctivae, no ptosis, dry buccal mucosa; AD: Tragal tenderness, narrow EAC, no discharge, intact TM; : Retained cerumen, intact TM NECK : Supple, short neck, right cervical tenderness CHEST : CTA, no tenderness HEART : Tachycardic, systolic murmur ABDOMEN: Some distention, nontender EXTREMITIES : LE swelling, no LE tenderness, no other conspicuous deformities noted NEUROLOGIC : Coherent, no facial asymmetry, no other gross focality Principal Diagnosis Otitis externa Discharge Exam Constitutional: WD/WN, vitals as above, NAD, sitting up in bed, pleasant, conversing easily ENMT: Wick in place. No drainage noted. Tenderness on palpation on tragus. Neck: trachea midline, no thyromegaly normal visual inspection Respiratory: normal respiratory effort, lungs clear to auscultation, no wheeze, rales, rhonchi. Normal insp/exp effort, no accessory muscle use Cardiovascular: RRR, no murmur, no edema Vessels: no JVD or carotid bruit Chest: normal inspection of chest Abdomen: normal bowel sounds, soft, nontender, no hepatosplenomegaly Musculoskeletal: no cyanosis or clubbing, extremities motor strength 5/5 Skin: no rashes, warm and dry normal turgor Neurologic: PERRL, EOMI, accommodation nl, no face palsy, no dysarthria CN's II- XI intact bilaterally and moves all extremities Psychiatric: A+Ox3, euthymic affect Discharge Data Allergies Allergy/AdvReac Type Severity Reaction Status Date / Time corn Allergy Severe Rash Verified 10/06/23 20:53 shrimp Allergy Severe Rash Verified 10/06/23 20:53 ranitidine AdvReac Severe HEART Verified 10/06/23 20:53 PALPITATIONS Consultations 10/06/23 23:15 ED Decision to Admit Stat 10/07/23 08:43 Consult Otolaryngology (Head and Neck) Routine Ordered Studies 10/06/23 21:15 CT head/brain wo con Stat 10/06/23 22:56 CT facial bones w con Stat Hospital Course (1) Sepsis: Secondary to acute otitis externa right secondary to ear manipulation Patient presented to the ED with continued right ear pain and fever. Tmax during the hospitalization was 39.5 C. Following infectious workup was done; Chest x-ray- no infiltrates Urinalysis not suggestive of infection Respiratory viral panel negative Blood culture negative for 24 hours. Lyme screen negative Patient was started on eardrops and IV Levaquin for sepsis secondary to acute otitis externa. Face CT and head CT was done which did not reveal any abscess. ENT was consulted for comanagement; canal edema and debris's was cultured and debrided. Wick placed. Patient reported significant improvement during the hospitalization. She was discharged on Ciprodex and Levaquin as per ENT. Patient to follow-up with ENT and primary care doctor. Total Time Total Time Spent Total Time Spent (In Minutes): 45 Total Time Includes: Examination of the Patient, Discharge Planning, Medication Reconciliation, Communication With Other Providers and Other Discharge Plan Discharge Items Patient Disposition: Home - Self-Care Reason For Visit: SEPSIS Discharge Diagnosis: Otitis externa Activity: Resume your previous activity Non-emergency contact: Primary Care Provider Call non-emergency contact if: you have any medication questions and your symptoms worsen Follow-up/Referrals: Jerri Alegria MD [Primary Care Provider] - Diet: Regular Addtl Attending Provider Instructions: You were admitted to the hospital due to otitis externa which is the infection of the ear canal on the right side. You are evaluated by ENT doctor during the hospitalization. Please follow the instruction below: -Keep wick in place 5 days -Ciprodex - 5 drops to right ear BID x10 days -Take Levaquin 750 mg once a day for 5 more days If you do not receive a call from ENT tomorrow; please call and make an appointment to follow-up on Thursday. The phone number is - [phone]. For pain control; take Tylenol 500 mg as needed every 6 hours. If the pain is very severe; you can take oxycodone which is prescribed for you. Pending Studies at Discharge: No Stand-Alone Forms: My [facility], Smoking Cessation Medications and DC Order Prescriptions: New levofloxacin 750 mg tablet 750 mg PO DAILY 5 Days Qty: 5 0RF ciprofloxacin-dexamethasone 0.3-0.1 % Drops,Suspension 5 drp OTR BID 10 Days Qty: 7.5 1RF Rx Instructions: 5 drops to right ear BID oxycodone 5 mg capsule 5 mg PO DAILY PRN (Reason: pain) Qty: 10 0RF Continued sumatriptan succinate 100 mg tablet 100 mg PO DIRECTED PRN (Reason: Migraine Headache) tretinoin 0.05 % cream 1 applic topical DAILY PRN (Reason: ACNE FLARE UPS) clindamycin phosphate 1 % lotion 1 applic topical DAILY PRN (Reason: ACNE FLARE UPS) spironolactone 50 mg tablet 50 mg PO DAILY fluoxetine 40 mg capsule 80 mg PO HS trazodone 50 mg Tablet 50 mg PO HS PRN (Reason: Sleep) Rx Instructions: take 30 minutes before bedtime levocetirizine 5 mg tablet 10 mg PO HS lorazepam 0.5 mg Tablet 0.5 mg PO BID PRN (Reason: Anxiety) fluticasone propionate [Flonase] 50 mcg/actuation [place],Suspension 2 spray INTRANASAL DAILY PRN (Reason: Congestion) multivitamin Tablet 1 tab PO DAILY naproxen [Naprosyn] 500 mg Tablet 500 mg PO DIRECTED PRN (Reason: Menstrual Cramps/PAIN) Rx Instructions: take 1 daily one week before start and one week after onset of menstural period. valacyclovir [Valtrex] 500 mg Tablet 500 mg PO Q12H PRN (Reason: Outbreak) Rx Instructions: take for 3 days lidocaine 5 % Ointment 1 applic TOPICAL .4-5 TIMES A DAY PRN (Reason: Pain) Rx Instructions: apply to genitals liberally Probiotic 5 billion cell Capsule, Sprinkle 1 cap PO DAILY hydroxyzine HCl 25 mg tablet 25 mg PO DIRECTED PRN (Reason: Itching) epinephrine [EpiPen] 0.3 mg/0.3 mL auto-injector 0.3 mg IM DIRECTED PRN (Reason: anaphylaxis) albuterol sulfate 90 mcg/actuation HFA aerosol inhaler 2 inh inhalation Q6H PRN (Reason: Shortness Of Breath Or Wheezing) acetaminophen [Tylenol Extra Strength] 500 mg Tablet 1,000 mg PO Q6H PRN (Reason: PAIN/FEVER) montelukast 10 mg tablet 10 mg PO QAM ascorbic acid (vitamin C) [Vitamin C] 500 mg Tablet,Chewable 500 mg PO DAILY Rx Instructions: gummy cholecalciferol (vitamin D3) [Vitamin D3] 25 mcg (1,000 unit) Tablet,Chewable 25 mcg PO DAILY Rx Instructions: gummy ondansetron 4 mg tablet,disintegrating 4 mg PO Q6H PRN (Reason: nausea and vomiting) Qty: 10 0RF Discontinued amoxicillin-pot clavulanate 875-125 mg tablet 1 tab PO BID 7 Days Qty: 14 0RF Rx Instructions: STARTED 10/05/23 FOR 7 DAYS Discharge Orders: Discharge Order (Routine); Ordered 10/08/23 Ordered By: Александр Lyons Admission Data Admit Date/Time: 10/07/23 02:19 Attending Provider: Александр Lyons Admit Provider: Jose Daniel Solorzano Primary Care Provider: Jerri Alegria Other Providers: Jose Daniel Solorzano; Richard Adhikari
--- NOTE | 2023-10-08 13:08 | Electrocardiogram Report ---
Test Reason : Blood Pressure : / mmHG Vent. Rate : 093 BPM Atrial Rate : 093 BPM P-R Int : 160 ms QRS Dur : 072 ms QT Int : 356 ms P-R-T Axes : 052 089 054 degrees QTc Int : 442 ms Normal sinus rhythm Normal ECG When compared with ECG of 12-AUG-2020 21:17, No significant change was found Confirmed by Faisal Griffin ([id number]) on 10/08/2023 1:07:59 PM Referred By: REFERRED SELF Confirmed By:Faisal Griffin
[2023-10-08] MEDS: LORazepam 0.5 MG TAB PO PRN (13:46)
[2023-10-08] MEDS ORDERED: oxyCODONE IR HOME PACK PO ONE (14:00)
[2023-10-08] MEDS ORDERED: CIPRO 0.3%/DEXAMETHASONE 0.1% OTIC SUSP 7.5ML OT SCH ×3 (14:00→21:00)
[2023-10-09 18:22] LABS: Babesia microti DNA Not Detected (Not Detected)
== END 2023-10-08 16:45 | disposition home or self-care (01) | DRG 872 ==
LOC: ED 18:02 → SUATTDRO 10-07 02:19 → EDINP 10-07 02:19 → 2N 10-07 03:46